=== PATIENT | male | born 1955 | race Caucasian/White ===

== ENCOUNTER 2024-03-13 09:01 | Outpatient (AMB) | payer OTHER, SELFPAY ==
--- NOTE | 2024-03-13 09:03 | MHC.PC.OV ---
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 Required: No Accompanied by: Self / Same As Patient Allergies No Known Allergies Allergy (Verified 03/14/24 08:44) Medication List - Last Reconciled 03/14/24 by Xu Betancourt CNP amiloride-hydrochlorothiazide 5-50 mg 1 tab PO DAILY amlodipine-benazepril 10-40 mg 1 cap PO DAILY aspirin 81 mg PO DAILY carvedilol 12.5 mg PO BID simvastatin 40 mg PO DAILY Tobacco use date assessed: 03/13/24 Fall risk assessment: No Falls in past year Last assessed Fall Risk: 03/13/24 Dental Screening Dental Screen Date: 03/13/24 Did you have a dental visit in the last 12 months?: No Did you have a dental problem in the last 6 months where you did not have access to dental care?: No Was dental information given to patient?: Yes HPI HPI Comments History of Present Illness Details New patient Prior PCP:?Family Medicine, [place], Dr. Gates. [facility] Last office visit/CPE: About 2.5 years Last lab work: 4-5 years ago Acute issue(s): Hypertension -He is on amiloride-hydrochlorothiazide 5-50 mg daily, amlodipine-benazepril 10-40 mg daily, and carvedilol 12.5 mg twice daily HLD -He is on simvastatin 40 mg daily Arthritis both knees -He takes Tylenol and apply bengay cream as needed with some improvement. He notes that bilat total knee replacement was recommended but he declined He admits to bilateral hearing impairment in the past 1 year for which he has never been medically evaluated He denies acute symptoms at this time He was seen by [facility] last week for a lesion to his left lateral neck; biopsy was taken; awaiting results He is followed by [facility]. [facility]. He has a follow up in May PMHx: HTN, HLD, COPD, arthritis in both knees SurgHx: s/p excisional neck biopsy FHx: Mom: Dad: HTN. MGF: Prostate cancer SocHx: Former cigarette smoker. Quit smoking 3 months ago after smoking for 51. He smoked between 1-3 packs daily. Drinks 6 beers weekly for the past 2 years. He notes that he drank half a dozen alcoholic beverages daily for 40 years. He notes that he is an alcoholic. He smokes 2 joints of marijuana daily He notes he has never had a LDCT He has not been vaccinated for shingles or pneumonia He notes that his last colonoscopy was 5 years ago at [facility]: normal [facility] Medical History (Updated 03/14/24 @ 09:02 by Xu Betancourt CNP) Arthritis High blood pressure COPD (chronic obstructive pulmonary disease) Surgical History (Updated 03/13/24 @ 09:26 by TIM Jones) Status post excisional biopsy Family History (Updated 03/13/24 @ 09:27 by TIM Jones) Father High blood pressure Maternal Grandfather Prostate cancer Social History Housing: House Patient Tobacco Use Status: Former Tobacco user Tobacco use type: Cigarette e-Cigarette/Vaping Use: Never Used service: No Current occupational status: retired Cognitive needs: No Hearing needs: No Vision needs: No Questionnaire PHQ-9 Over the last 2 weeks, how often have you been bothered by any of the following problems? 1. Little interest or pleasure in doing things: not at all 2. Feeling down, depressed, or hopeless: not at all 3. Trouble falling or staying asleep, or sleeping too much: not at all 4. Feeling tired or having little energy: not at all 5. Poor appetite or overeating: not at all 6. Feeling bad about yourself - or that you are a failure or have let yourself or your family down: not at all 7. Trouble concentrating on things, such as reading the newspaper or watching television: not at all 8. Moving or speaking so slowly that other people could have noticed. Or the opposite - being so fidgety or restless that you have been moving around a lot more than usual: not at all 9. Thoughts that you would be better off or of hurting yourself in some way: not at all Total score: 0 Depression Screening Interpretation: Negative Depression Screening Done: Yes 36539 - PHQ-9 Billing: Yes Source: Developed by Drs. Saurav Patel, Aminta Angeles, Frank Lopez and colleagues, with an educational salvador from [employer]. Thrive Questionnaire Date Thrive assessed: 03/13/24 I am a: Patient What is your living situation today?: I have a steady place to live Within the past 12 months, did the food you bought not last and you didn't have the money to get more?: Never true Within the past 12 months, did you worry whether your food would run out before you got money to buy more?: Never true Do you have trouble paying for medicines?: No Do you have trouble getting transportation to medical appointments?: No Do you have trouble paying your heating and electricity bill?: No Do you have trouble taking care of your child, family member or friend?: No Do you have trouble with day-to-day activities such as bathing, preparing meals, shopping, managing finances, etc.?: No Are you currently unemployed and looking for a job?: No Are you interested in more education?: No Please select the resources that you would like help with: None Currently or been in a relationship where the following occur: no concerns reported THRIVE Score: 0 AUDIT C Alcohol Use Questionnaire (AUDIT-C) 1. How often do you have a drink containing alcohol?: 4 or more times a week 2. How many drinks containing alcohol do you have on a typical day when you are drinking?: 5 or 6 3. How often do you have six or more drinks on one occasion?: Weekly Total Score: 9 LAZARO-7 AMB Questionnaire LAZARO-7 Date LAZARO - 7 assessed: 03/13/24 Feeling nervous, anxious, or on edge: 0 = Not at all Not being able to stop or control worryin = Not at all Worrying too much about different things: 0 = Not at all Trouble relaxin = Not at all Being so restless that it is hard to sit still: 0 = Not at all Becoming easily annoyed or irritable: 0 = Not at all Feeling afraid as if something awful might happen: 0 = Not at all Total LAZARO-7 score (0-4 normal; 5-9 mild; 10-14 moderate; 15-21 severe): 0 Source: Developed by Aminta Milian, Frank Lopez and colleagues, with an educational salvador from [employer]. LAZARO-7 Assessment Billing LAZARO-7 Assessment Tool: LAZARO-7 Assessment 09887 Review of Systems Const Details: Denies chills, Denies fatigue, Denies fever(s), Denies headache(s) and Denies weakness HEENT Denies change in vision, Denies dizziness, Denies headache(s), Denies hearing loss, Denies nasal congestion, Denies sinus pain, Denies sinus pressure and Denies sore throat Card Denies chest pain, Denies lightheadedness, Denies dyspnea and Denies other (palpitations) Resp Denies cough, Denies dyspnea and Denies wheezing GI Denies abdominal pain, Denies melena, Denies hematochezia, Denies change in bowel habits, Denies dyspepsia and Denies nausea Denies hematuria and Denies dysuria Musc Denies abnormal gait, Denies myalgias, Denies arthralgias, Denies numbness and Denies tingling Skin/Breast Denies rash, Denies unusual bruising and Denies wounds Neuro Denies abnormal gait, Denies dizziness, Denies headache(s), Denies memory loss, Denies numbness, Denies Sensory deficit (Neuro), Denies tingling and Denies weakness Psych Denies anxiety, Denies depression and Denies memory loss Endo Denies cold intolerance, Denies fatigue, Denies heat intolerance, Denies polydipsia and Denies polyuria Julius/Lymph Denies easy bleeding and Denies easy bruising Aller/Immun Denies wheezing Physical exam (Primary Care) Vital Signs: Last Vital Signs Temp 97.6 F 03/13/24 09:08 Pulse 63 03/13/24 09:08 Resp 14 03/13/24 09:08 BP 140/70 H 03/13/24 09:08 Pulse Ox 99 03/13/24 09:08 Oxygen Delivery Method Room Air 03/13/24 09:08 BMI result Body Mass Index 29.2 Tobacco/Smoking Status: Tobacco use Status Tobacco use date assessed 03/13/24 03/13/24 09:17 Patient Tobacco Use Status Former Tobacco user 03/13/24 09:17 Tobacco use type Cigarette 03/13/24 09:17 e-Cigarette/Vaping Use Never Used 03/13/24 09:17 PHQ-9: PHQ-9 Score PHQ-9: Total score 0 03/14/24 08:39 Depression Screening Interpretation: Negative Thrive Assessment: Date of Thrive Assessment Date Thrive assessed 03/13/24 03/13/24 09:06 Currently or been in a relationship where the following occur: no concerns reported Const Other: General: no acute distress, well developed, alert and awake Nutritional Appearance: well nourished Orientation/consciousness: patient oriented x3 HENMT Head: Yes normocephalic and Yes atraumatic Ears: hearing grossly normal bilaterally and TM's normal bilaterally General nose exam: Normal external nose present and Normal nares present Mouth: Normal oral and palatal mucosa present and moist mucous membranes Teeth and gingiva: dentition normal Throat: Yes oropharynx normal Eyes Pupils: Equal, round and reactive pupils present and Pupil accommodation reflex normal EOM: EOMs intact bilaterally Neck Neck: Yes normal visual inspection, Yes no lymphadenopathy and Yes trachea midline Thyroid: Thyroid normal Carotids: no bruits Lymphatic: no lymphadenopathy noted Chest Chest palpation & inspection: normal inspection of the chest Resp Effort & Inspection: normal respiratory effort Auscultation: clear to auscultation bilaterally Cardio Rate: regular rate Rhythm: regular rhythm Heart sounds: S1 normal heart sound present, S2 normal heart sound present, no gallops, no murmurs and no rubs Bruits: no abdominal aortic bruits and no carotid bruits GI Palpation (GI): No Abdominal aortic bruit present, Soft to palpation, nontender, No hepatosplenomegaly present and No Rebound tenderness present Auscultation: normal bowel sounds General: Yes no CVA tenderness Back/Spine/Pelvis Back: no CVA tenderness Cervical Spine: cervical ROM normal and No Cervical spine tenderness Thoracic/Lumbar Spine: thoraco-lumbar ROM normal, No pain with thoraco-lumbar ROM, No thoracic spinal tenderness and No lumbar spinal tenderness Skin General: warm and dry. Normal skin color. Normal skin turgor Lesions: Healing wound to left lateral neck/excisional biopsy site. No overt infection Rashes: no rashes Trauma: no lacerations or abrasions Wounds: no wounds Nails: normal Neuro General: patient oriented x3, gait normal and CN's II-XI intact bilaterally Cranial nerves: Yes Equal, round and reactive pupils present Cognition (Neuro): normal cognition Gait exam (Neuro): Normal gait present Motor exam (neuro): 5/5 motor strength present throughout Sensory Exam: No Sensory deficit (Neuro) Deep tendon reflexes (DTR's): Right patellar reflex intensity grade: 2+ and Left patellar reflex intensity grade: 2+ Extrem General: Yes normal to inspection, No edema and No calf tenderness Psych Appearance: grossly normal Affect: normal affect Attitude: cooperative Thought process: Normal thought process present Assessment and Plan Assessment & Plan (1) Physical exam, annual: Code(s): Z00.00 - Encounter for general adult medical examination without abnormal findings Plan: Limited physical restrictions due to arthritis to bilateral knee; unable to squat fully Continue current treatment regimen Healthy diet and routine exercise encouraged Encouraged to establish with a dentist for routine dental care Will request his colonoscopy record from [facility] for review Advised to follow-up in 1 month for hypertension, hyperlipidemia, and labs review Return sooner with symptoms or concerns Verbalized understanding and agreed with treatment plan (2) High blood pressure: Code(s): I10 - Essential (primary) hypertension Plan: His blood pressure is 140/70, above goal of less than 140/90 Continue current treatment regimen Low-sodium diet and routine exercise encouraged Continue follow-up with cardiology as planned. Encouraged to sign a medical release to obtain his cardiology record Follow-up in 1 month Verbalized understanding and agreed with treatment plan (3) Hyperlipidemia: Code(s): E78.5 - Hyperlipidemia, unspecified Plan: Lipid panel ordered. Will check results and make changes as needed Continue current treatment regimen Follow-up in 1 month Verbalized understanding and agreed with the plan (4) COPD (chronic obstructive pulmonary disease): Code(s): J44.9 - Chronic obstructive pulmonary disease, unspecified Plan: Stable (5) Smoking greater than 20 pack years: Code(s): F17.210 - Nicotine dependence, cigarettes, uncomplicated Plan: He quit smoking 3 months ago after smoking for 51. He smoked between 1-3 packs daily He has never had a LDCT LDCT ordered Encouraged to continue to abstain from cigarette smoking Verbalized understanding and agreed with the plan (6) Impaired hearing: Code(s): H91.90 - Unspecified hearing loss, unspecified ear Plan: He admits to bilateral hearing impairment in the past 1 year He has never been evaluated for this condition Referred to audiology (7) Alcohol dependence: Code(s): F10.20 - Alcohol dependence, uncomplicated Plan: He drinks 6 beers weekly for the past 2 years. He notes that he drank half a dozen alcoholic beverages daily for 40 years. He notes that he is an alcoholic but has made significant improvement over the years Declines referral to addiction medicine Instructed on the health risks and complications of alcohol consumption and encouraged to limit or stop alcohol intake (8) Vaccine counseling: Code(s): Z71.85 - Encounter for immunization safety counseling Plan: He has not been vaccinated for shingles or pneumonia. Instructed on importance of vaccinations and encouraged to get vaccinated for both shingles or pneumonia. He may request the vaccines from his local pharmacy. Verbalized understanding and agreed with the plan (9) Open neck wound: Code(s): S11.90XA - Unspecified open wound of unspecified part of neck, initial encounter Plan: Healing wound to left lateral neck/excisional biopsy site. No overt infection Follow-up with Dermatology as planned Return with symptoms or concerns Verbalized understanding and agreed with the treatment plan (10) Arthritis of both knees: Code(s): M17.0 - Bilateral primary osteoarthritis of knee Plan: No acute symptoms Continue current treatment regimen Warm/cool compresses encouraged Follow-up with symptoms or concerns Verbalized understanding and agreed with the treatment plan (11) Laboratory tests ordered as part of a complete physical exam (CPE): Code(s): Z00.00 - Encounter for general adult medical examination without abnormal findings Plan: Fasting labs ordered as part of a complete physical exam. Advised to fast for at least 10 hours before getting labs drawn. May drink water Verbalized understanding and agreed with treatment plan. Orders: Orders Comprehensive [place]. Panel Fast 03/13/24 Z. - Encounter for general adult medical examination without abnormal findings Lipid Panel 03/13/24 Z.00 - Encounter for general adult medical examination without abnormal findings TSH reflex Free T4 03/13/24 Z. - Encounter for general adult medical examination without abnormal findings UA CC w/rflx Micro + Cult 03/13/24 Z. - Encounter for general adult medical examination without abnormal findings Complete Blood Count Auto Diff 03/13/24 Z. - Encounter for general adult medical examination without abnormal findings Microalbumin, Random (w Creat) 03/13/24 Z. - Encounter for general adult medical examination without abnormal findings PSA, Ultra Sensitive 03/13/24 Z00.00 - Encounter for general adult medical examination without abnormal findings CT lung screening 03/13/24 F17.210 - Nicotine dependence, cigarettes, uncomplicated Referrals Audiology Referral H91.90 - Unspecified hearing loss, unspecified ear Coding Level of Care Code New Pt Level 4 (27561) New Pt Prev Care >65yr (13920) Diagnoses Physical exam, annual Z00.00 High blood pressure I10 Hyperlipidemia E78.5 COPD (chronic obstructive pulmonary disease) J44.9 Smoking greater than 20 pack years F17.210 Impaired hearing H91.90 Alcohol dependence F10.20 Vaccine counseling Z71.85 Open neck wound S11.90XA Arthritis of both knees M17.0 Laboratory tests ordered as part of a complete physical exam (CPE) Z00.00 Additional Codes LAZARO-7 Assessment Billing - LAZARO-7 Assessment Tool: LAZARO-7 Assessment 70506 ([id number])
[2024-03-13 09:08] VITALS: BP 140/70; PULSE 63; RESP 14; TEMP 36.4; O2SAT 99; BMI 29.2
== END 2024-03-13 10:07 | disposition home or self-care (01) ==
PROVIDERS: Visit Provider Nurse Practitioner Family
DX: Z00.00 Encounter for general adult medical examination without abnormal findings (principal); J44.9 Chronic obstructive pulmonary disease, unspecified; F10.20 Alcohol dependence, uncomplicated; I10 Essential (primary) hypertension; E78.5 Hyperlipidemia, unspecified; F17.210 Nicotine dependence, cigarettes, uncomplicated; Z71.85 Encounter for immunization safety counseling; S11.90XA Unspecified open wound of unspecified part of neck, initial encounter; M17.0 Bilateral primary osteoarthritis of knee
CPT/HCPCS: 99387

== ENCOUNTER 2024-04-10 07:33 | Outpatient (REF) | payer OTHER, SELFPAY ==
[2024-04-10 10:55] LABS: MANUAL DIFF FLAG NO
[2024-04-10 10:58] LABS: Appearance Urine Clear; Color Urine Dark Yellow; Glucose Urine UA Negative (Negative); Leukocyte Esterase Urine Negative (Negative); Nitrite Urine Negative (Negative); PH 6.5 (5.0-9.0); Specific Gravity - Urine >= 1.030 (1.005-1.025); Urine Blood Negative (Negative); Urine Ketones Trace mg/dL (Negative); Urine Protein Trace mg/dL (Neg-Trace)
[2024-04-10 11:05] LABS: Basophils Absolute Auto 0.1 X10*3/uL (0.0-0.2); Basophils Percent Auto 1.2 % (0-2); Eosinophils Absolute Auto 0.3 X10*3/uL (0.0-0.4); Hematocrit 44.5 % (42.0-52.0); Hemoglobin 15.6 g/dl (14.0-18.0); Imm Gran Abs Auto 0.04 X10*3/uL (0.00-0.03); Imm Gran Pct Auto 0.5 % (0.0-0.4); Lymphocytes Absolute Auto 2.1 X10*3/uL (1.2-4.9); Lymphocytes Percent Auto 24.8 % (20-40); Mean Corpuscular HGB Conc 35.1 g/dl (31.0-36.0); Mean Corpuscular Hemoglobin 34.5 pg (27.0-33.0); Mean Corpuscular Volume 98.5 fL (80.0-98.0); Mean Platelet Volume 10.4 fL (9.4-12.4); Monocytes Absolute Auto 0.7 X10*3/uL (0.1-1.2); Monocytes Percent Auto 8.8 % (2-11); Neutrophils Absolute Auto 5.2 x10*3/uL (2.0-8.3); Neutrophils Percent Auto 61.7 % (45-73); Platelet Count 281 X10*3/uL (160-400); Red Blood Count 4.52 X10*6/uL (4.60-5.80); Red Cell Distribution Width 12.7 % (11.0-16.0); White Blood Count 8.4 X10*3/uL (4.8-10.8)
[2024-04-10 11:11] LABS: Anion Gap 12 (12-20); Blood Urea Nitrogen 13 mg/dL (9-16); Calcium 9.5 mg/dL (8.4-10.2); Carbon Dioxide 26 mmol/L (22-29); Chloride 103 mmol/L (96-108); Cholesterol 117 mg/dL (<200); Estimated Glomerular Filt Rate > 60; Glucose Random 109 mg/dL (60-115); HDL Cholesterol 40 mg/dL (>40); LDL Cholesterol Calculated 61 mg/dL (<100); Potassium 3.4 mmol/L (3.3-5.1); Sodium 138 mmol/L (135-145); Triglycerides 82 mg/dL (<150)
[2024-04-10 11:27] LABS: B Type Natriuretic Peptide 26 pg/mL (<100)
[2024-04-10 11:36] LABS: Creatinine Urine 200.86 mg/dL; Microalbum/Creatinine Ratio Ur 7.9 ug/mg cr (<30)
[2024-04-10 12:01] LABS: Alanine Aminotransferase 18 U/L (0-40); Albumin Level 4.3 g/dL (3.5-5.0); Alkaline Phosphatase 69 U/L (39-117); Anion Gap 12 (12-20); Aspartate Amino Transferase 16 U/L (5-37); Bilirubin Total 0.5 mg/dL (0.0-1.0); Blood Urea Nitrogen 13 mg/dL (9-16); Calcium 9.3 mg/dL (8.4-10.2); Carbon Dioxide 25 mmol/L (22-29); Chloride 104 mmol/L (96-108); Cholesterol 116 mg/dL (<200); Estimated Glomerular Filt Rate > 60; Glucose Fasting 108 mg/dL (60-99); HDL Cholesterol 41 mg/dL (>40); LDL Cholesterol Calculated 59 mg/dL (<100); Potassium 3.3 mmol/L (3.3-5.1); Sodium 138 mmol/L (135-145); Total Protein 7.3 g/dL (6.5-8.0); Triglycerides 84 mg/dL (<150)
[2024-04-13 20:49] LABS: PSA, Ultra Sensitive 1.22 ng/mL
== END 2024-04-10 07:34 | disposition home or self-care (01) ==
LOC: HO.WFDLDS 07:33
PROVIDERS: Internal Medicine Cardiovascular Disease; Visit Provider Nurse Practitioner Family
DX: Z00.00 Encounter for general adult medical examination without abnormal findings (principal); R06.02 Shortness of breath; E78.00 Pure hypercholesterolemia, unspecified; I51.7 Cardiomegaly; Z12.5 Encounter for screening for malignant neoplasm of prostate
CPT/HCPCS: 36415; 80048; 80053; 80061; 81003; 82043; 82570; 83880; 84153; 84443; 85025

== ENCOUNTER 2024-04-17 09:28 | Outpatient (AMB) | payer OTHER, SELFPAY ==
--- NOTE | 2024-04-17 09:38 | MHC.PC.OV ---
Vital Signs 04/17/24 09:45 Weight 226 lb 2 oz BP 110/60 Blood Pressure Location Rt brachial Position Sitting Respiration 16 Pulse 68 Pulse Source Pulse Oximeter Temp 97.5 F Temp Source Temporal Artery Scan Pulse Oximetry (%) 97 Oxygen Delivery Method Room Air Intake Visit Reasons: 1 mos HTN, HLD, labs Intake Note: patient here for follow up. Voucher Examiner Required: No Allergies No Known Allergies Allergy (Verified 04/17/24 09:58) Medication List - Last Reconciled 04/17/24 by Xu Betancourt CNP amiloride-hydrochlorothiazide 5-50 mg 1 tab PO DAILY amlodipine-benazepril 10-40 mg 1 cap PO DAILY aspirin 81 mg PO DAILY carvedilol 12.5 mg PO BID simvastatin 40 mg PO DAILY Tobacco use date assessed: 03/13/24 Fall risk assessment: No Falls in past year Dental Screening Dental Screen Date: 03/13/24 HPI HPI Comments History of Present Illness Details 68-year-old male presents for hypertension, hyperlipidemia, and review recent lab work He admits to taking his medications as prescribed without adverse reactions He offers no complaints and denies acute symptoms at this time [facility] Medical History (Updated 04/17/24 @ 13:11 by Xu Betancourt CNP) Arthritis High blood pressure COPD (chronic obstructive pulmonary disease) Surgical History (Updated 03/13/24 @ 09:26 by TIM Jones) Status post excisional biopsy Family History (Updated 03/13/24 @ 09:27 by TIM Jones) Father High blood pressure Maternal Grandfather Prostate cancer Social History Housing: House Patient Tobacco Use Status: Former Tobacco user Tobacco use type: Cigarette e-Cigarette/Vaping Use: Never Used service: No Current occupational status: retired Cognitive needs: No Hearing needs: No Vision needs: No Questionnaire PHQ-9 Over the last 2 weeks, how often have you been bothered by any of the following problems? 1. Little interest or pleasure in doing things: not at all 2. Feeling down, depressed, or hopeless: not at all 3. Trouble falling or staying asleep, or sleeping too much: several days 4. Feeling tired or having little energy: several days 5. Poor appetite or overeating: not at all 6. Feeling bad about yourself - or that you are a failure or have let yourself or your family down: not at all 7. Trouble concentrating on things, such as reading the newspaper or watching television: not at all 8. Moving or speaking so slowly that other people could have noticed. Or the opposite - being so fidgety or restless that you have been moving around a lot more than usual: not at all 9. Thoughts that you would be better off or of hurting yourself in some way: not at all Total score: 2 Depression Screening Interpretation: Negative Depression Screening Done: Yes 82046 - PHQ-9 Billing: Yes Source: Developed by Drs. Saurav Patel, Aminta Angeles, Frank Lopez and colleagues, with an educational salvador from [employer]. Thrive Questionnaire Date Thrive assessed: 03/13/24 LAZARO-7 AMB Questionnaire LAZARO-7 Date LAZARO - 7 assessed: 03/13/24 Source: Developed by Drs. Saurav Patel, Aminta Angeles, Frank Lopez and colleagues, with an educational salvador from [employer]. Review of Systems Const Details: Const Denies chills, Denies fatigue, Denies fever(s), Denies headache(s) and Denies weakness ENT Denies dizziness and Denies headache(s) Card Denies chest pain, Denies lightheadedness, Denies dyspnea and Denies other (Palpitations) Resp Denies cough, Denies dyspnea, Denies wheezing and Denies other ( shortness of breath) GI Denies abdominal pain, Denies melena, Denies hematochezia, Denies change in bowel habits, Denies dyspepsia and Denies nausea Denies hematuria and Denies dysuria Musc Denies abnormal gait, Denies myalgias, Denies arthralgias, Denies numbness and Denies tingling Skin/Breast Denies rash, Denies unusual bruising and Denies wounds Neuro Denies abnormal gait, Denies dizziness, Denies headache(s), Denies memory loss, Denies numbness, Denies Sensory deficit (Neuro), Denies tingling and Denies weakness Psych Denies anxiety, Denies depression, Denies memory loss Endo Denies cold intolerance, Denies fatigue, Denies heat intolerance, Denies polydipsia and Denies polyuria Aller/Immun Denies wheezing Physical exam (Primary Care) Vital Signs: Last Vital Signs Temp 97.5 F 04/17/24 09:45 Pulse 68 04/17/24 09:45 Resp 16 04/17/24 09:45 BP 110/60 04/17/24 09:45 Pulse Ox 97 04/17/24 09:45 Oxygen Delivery Method Room Air 04/17/24 09:45 Tobacco/Smoking Status: Tobacco use Status Tobacco use date assessed 03/13/24 04/17/24 09:38 Patient Tobacco Use Status Former Tobacco user 04/17/24 09:38 Tobacco use type Cigarette 04/17/24 09:38 e-Cigarette/Vaping Use Never Used 04/17/24 09:38 PHQ-9: PHQ-9 Score PHQ-9: Total score 2 04/17/24 13:13 Depression Screening Interpretation: Negative Thrive Assessment: Date of Thrive Assessment Date Thrive assessed 03/13/24 04/17/24 09:38 Const Other: General: no acute distress and well developed Nutritional Appearance: well nourished Orientation/consciousness: patient oriented x3 HENMT Head: Yes normocephalic and Yes atraumatic Eyes General: appearance normal, both eyes and all related structures Pupils: Equal, round and reactive pupils present EOM: EOMs intact bilaterally Resp Effort & Inspection: normal respiratory effort Auscultation: clear to auscultation bilaterally Cardio Rate: regular rate Rhythm: regular rhythm Heart sounds: S1 normal heart sound present, S2 normal heart sound present, no gallops, no murmurs and no rubs GI Palpation (GI): No Abdominal aortic bruit present, Soft to palpation, nontender, No hepatosplenomegaly present and No Rebound tenderness present Auscultation: normal bowel sounds General: Yes no CVA tenderness Back/Spine/Pelvis Back: no CVA tenderness Cervical Spine: cervical ROM normal and No Cervical spine tenderness Thoracic/Lumbar Spine: thoraco-lumbar ROM normal, No pain with thoraco-lumbar ROM, No thoracic spinal tenderness and No lumbar spinal tenderness Extrem General: Yes normal to inspection, No edema and No calf tenderness Skin General: warm and dry. Normal skin color. Normal skin turgor Neuro General: patient oriented x3, gait normal and no focal neuro deficit Cranial nerves: Yes Equal, round and reactive pupils present Cognition (Neuro): normal cognition Gait exam (Neuro): Normal gait present Sensory Exam: No Sensory deficit (Neuro) Psych Appearance: grossly normal Affect: normal affect Attitude: cooperative Thought process: Normal thought process present Results AMB Hemoglobin A1c AMB Hemoglobin A1c 5.9 % Last Edit by Alexandra Rodriguez on 04/17/24 14:30 Assessment and Plan Assessment & Plan (1) High blood pressure: Code(s): I10 - Essential (primary) hypertension Plan: Blood pressure today is 110/60, within goal of less than 140/90 Continue current treatment regimen Low-sodium diet encouraged Follow-up in 3 months for hypertension and hyperlipidemia or sooner with symptoms or concerns Verbalized understanding and agreed with the treatment plan (2) Hyperlipidemia: Code(s): E78.5 - Hyperlipidemia, unspecified Plan: Current triglyceride, total cholesterol, and LDL, levels are normal, 82, 117, and 61 respectively. HDL is slightly low, 40 Continue current treatment regimen Advised to limit foods high in saturated fat and avoid foods high in trans fat Routine exercise encouraged Will recheck lipid panel level in 3 months. Advised to fast for 10-12 hours, may drink water only, and get blood work done a few days before his next visit Verbalized understanding and agreed with the plan (3) Prediabetes: Code(s): R73.03 - Prediabetes Plan: Recent fasting glucose is elevated, 108 He notes history of borderline elevated fasting blood glucose His A1c today is 5.9%, prediabetes Healthy diet including low carbs instructed and encouraged Routine exercise encouraged Will continue to monitor periodically Verbalized understanding and agreed with treatment plan (4) Colon cancer screening: Code(s): Z12.11 - Encounter for screening for malignant neoplasm of colon Plan: Was not able to locate his last colonoscopy in [facility] medical records He notes that his last colonoscopy was almost 10 years ago. Benign polyps were found and was advised to follow-up in 5 years. He never followed up Referred to [facility] gastroenterology for a colonoscopy Orders: Orders Lipid Panel 3 Months E78.5 - Hyperlipidemia, unspecified AMB Hemoglobin A1c Today Z13.9 - Encounter for screening, unspecified Referrals Gastroenterology Referral Z12.11 - Encounter for screening for malignant neoplasm of colon Coding Level of Care Code Est Pt Level 4 (77536) Complex EM visit Add On G2211 Diagnoses High blood pressure I10 Hyperlipidemia E78.5 Prediabetes R73.03 Colon cancer screening Z12.11
[2024-04-17 09:45] VITALS: BP 110/60; PULSE 68; RESP 16; TEMP 36.4; O2SAT 97
== END 2024-04-17 10:43 | disposition home or self-care (01) ==
PROVIDERS: Visit Provider Nurse Practitioner Family
DX: I10 Essential (primary) hypertension (principal); E78.5 Hyperlipidemia, unspecified; R73.03 Prediabetes; Z12.11 Encounter for screening for malignant neoplasm of colon
CPT/HCPCS: 83036; 99214; G2211

== ENCOUNTER 2024-11-13 08:07 | Outpatient (AMB) | payer OTHER, SELFPAY ==
--- NOTE | 2024-11-13 08:09 | MHC.PC.OV ---
Vital Signs 11/13/24 08:19 11/13/24 08:35 Height 6 ft 2 in Weight 246 lb 2 oz BMI 31.6 BP 143/65 H 140/70 H Blood Pressure Location Rt brachial Lt brachial Position Sitting Sitting Respiration 16 Pulse 67 Pulse Source Pulse Oximeter Temp 97.5 F Temp Source Oral Pulse Oximetry (%) 97 Oxygen Delivery Method Room Air Intake Visit Reasons: FOLLOW UP BLOOD WORK CT SCAN Intake Note: patient here for follow up on blood work and CT scan. he was supposed have a few things done but due to insurance he could not get them done and that's why he is here today to speak to provider. Observation Nurse Required: No Allergies No Known Allergies Allergy (Verified 11/13/24 08:23) Medication List - Last Reconciled 11/13/24 by Xu Betancourt CNP amiloride-hydrochlorothiazide 5-50 mg 1 tab PO DAILY amlodipine-benazepril 10-40 mg 1 cap PO DAILY aspirin 81 mg PO DAILY carvedilol 12.5 mg PO BID simvastatin 40 mg PO DAILY Tobacco use date assessed: 11/13/24 Fall risk assessment: 1 Fall in past year Last assessed Fall Risk: 11/13/24 Dental Screening Dental Screen Date: 11/13/24 Did you have a dental visit in the last 12 months?: Yes Did you have a dental problem in the last 6 months where you did not have access to dental care?: No Was dental information given to patient?: Patient has dentist HPI HPI Comments History of Present Illness Details 69-year-old male presents for hypertension and hyperlipidemia follow-up. He admits to taking his medications as prescribed without adverse reactions. He consumes significant amounts salt and has not been exercising. He drinks 3 beers 2 to 3 times a week. He notes that he gets jumpy and anxious at times. He was on escitalopram 10 mg daily until 2 years ago. The medication was helpful. He wishes to restart citalopram. He did not get lipid panel blood work done for this visit as planned. Followed by cardiology. His previous health plan declined LDCT. However, he has a new health plan and wishes to continue with LDCT. History of cigarette smoking. Quit smoking 11 months ago after smoking for 51. He smoked between 1-3 packs daily. [facility] Medical History (Updated 11/13/24 @ 08:45 by Xu Betancourt CNP) Arthritis High blood pressure COPD (chronic obstructive pulmonary disease) Surgical History (Updated 03/13/24 @ 09:26 by TIM Jones) Status post excisional biopsy Family History (Updated 03/13/24 @ 09:27 by TIM Jones) Father High blood pressure Maternal Grandfather Prostate cancer Social History Housing: House Patient Tobacco Use Status: Former Tobacco user Tobacco use type: Cigarette e-Cigarette/Vaping Use: Never Used service: No Current occupational status: retired Cognitive needs: No Hearing needs: No Vision needs: No Questionnaire PHQ-9 Over the last 2 weeks, how often have you been bothered by any of the following problems? 1. Little interest or pleasure in doing things: not at all 2. Feeling down, depressed, or hopeless: not at all 3. Trouble falling or staying asleep, or sleeping too much: several days 4. Feeling tired or having little energy: several days 5. Poor appetite or overeating: not at all 6. Feeling bad about yourself - or that you are a failure or have let yourself or your family down: not at all 7. Trouble concentrating on things, such as reading the newspaper or watching television: not at all 8. Moving or speaking so slowly that other people could have noticed. Or the opposite - being so fidgety or restless that you have been moving around a lot more than usual: not at all 9. Thoughts that you would be better off or of hurting yourself in some way: not at all Total score: 2 Depression Screening Interpretation: Negative Depression Screening Done: Yes 16219 - PHQ-9 Billing: Yes Source: Developed by Drs. Saurav Patel, Aminta Angeles, Frank Lopez and colleagues, with an educational salvador from [employer]. Thrive Questionnaire Date Thrive assessed: 11/13/24 I am a: Patient What is your living situation today?: I have a steady place to live Within the past 12 months, did the food you bought not last and you didn't have the money to get more?: I choose not to answer this question Within the past 12 months, did you worry whether your food would run out before you got money to buy more?: I choose not to answer this question Do you have trouble paying for medicines?: I choose not to answer this question Do you have trouble getting transportation to medical appointments?: No Do you have trouble paying your heating and electricity bill?: No Do you have trouble taking care of your child, family member or friend?: No Do you have trouble with day-to-day activities such as bathing, preparing meals, shopping, managing finances, etc.?: No Are you currently unemployed and looking for a job?: No Are you interested in more education?: No Please select the resources that you would like help with: None Currently or been in a relationship where the following occur: No concerns reported THRIVE Score: 0 AUDIT C Alcohol Use Questionnaire (AUDIT-C) 1. How often do you have a drink containing alcohol?: 2-3 times a week 2. How many drinks containing alcohol do you have on a typical day when you are drinking?: 3 or 4 3. How often do you have six or more drinks on one occasion?: Never Total Score: 4 Score Reviewed/Action Taken: Yes LAZARO-7 AMB Questionnaire LAZARO-7 Date LAZARO - 7 assessed: 11/13/24 Feeling nervous, anxious, or on edge: 0 = Not at all Not being able to stop or control worryin = Not at all Worrying too much about different things: 0 = Not at all Trouble relaxin = Not at all Being so restless that it is hard to sit still: 0 = Not at all Becoming easily annoyed or irritable: 0 = Not at all Feeling afraid as if something awful might happen: 0 = Not at all Total LAZARO-7 score (0-4 normal; 5-9 mild; 10-14 moderate; 15-21 severe): 0 Source: Developed by Drs. Saurav Patel, Aminta Angeles, Frank Lopez and colleagues, with an educational salvador from [employer]. LAZARO-7 Assessment Billing LAZARO-7 Assessment Tool: LAZARO-7 Assessment 51595 Review of Systems Const Details: Const Denies chills, Denies fatigue, Denies fever(s), Denies headache(s) and Denies weakness ENT Denies dizziness and Denies headache(s) Card Denies chest pain, Denies lightheadedness, Denies dyspnea and Denies other (Palpitations) Resp Denies cough, Denies dyspnea, Denies wheezing and Denies other ( shortness of breath) GI Denies abdominal pain, Denies melena, Denies hematochezia, Denies change in bowel habits, Denies dyspepsia and Denies nausea Denies hematuria and Denies dysuria Musc Denies abnormal gait, Denies myalgias, Denies arthralgias, Denies numbness and Denies tingling Skin/Breast Denies rash, Denies unusual bruising and Denies wounds Neuro Denies abnormal gait, Denies dizziness, Denies headache(s), Denies memory loss, Denies numbness, Denies Sensory deficit (Neuro), Denies tingling and Denies weakness Psych Denies anxiety, Denies depression, Denies memory loss Endo Denies cold intolerance, Denies fatigue, Denies heat intolerance, Denies polydipsia and Denies polyuria Aller/Immun Denies wheezing Physical exam (Primary Care) Tobacco/Smoking Status: Tobacco use Status Tobacco use date assessed 11/13/24 11/13/24 08:16 Patient Tobacco Use Status Former Tobacco user 11/13/24 08:11 Tobacco use type Cigarette 11/13/24 08:11 e-Cigarette/Vaping Use Never Used 11/13/24 08:11 PHQ-9: PHQ-9 Score PHQ-9: Total score 2 11/13/24 08:16 Depression Screening Interpretation: Negative Thrive Assessment: Date of Thrive Assessment Date Thrive assessed 11/13/24 11/13/24 08:11 Currently or been in a relationship where the following occur: No concerns reported Const Other: General: no acute distress and well developed Nutritional Appearance: well nourished Orientation/consciousness: patient oriented x3 HENMT Head: Yes normocephalic and Yes atraumatic Eyes General: appearance normal, both eyes and all related structures Pupils: Equal, round and reactive pupils present EOM: EOMs intact bilaterally Resp Effort & Inspection: normal respiratory effort Auscultation: clear to auscultation bilaterally Cardio Rate: regular rate Rhythm: regular rhythm Heart sounds: S1 normal heart sound present, S2 normal heart sound present, no gallops, no murmurs and no rubs GI Palpation (GI): No Abdominal aortic bruit present, Soft to palpation, nontender, No hepatosplenomegaly present and No Rebound tenderness present Auscultation: normal bowel sounds General: Yes no CVA tenderness Back/Spine/Pelvis Back: no CVA tenderness Cervical Spine: cervical ROM normal and No Cervical spine tenderness Thoracic/Lumbar Spine: thoraco-lumbar ROM normal, No pain with thoraco-lumbar ROM, No thoracic spinal tenderness and No lumbar spinal tenderness Extrem General: Yes normal to inspection, No edema and No calf tenderness Skin General: warm and dry. Normal skin color. Normal skin turgor Neuro General: patient oriented x3, gait normal and no focal neuro deficit Cranial nerves: Yes Equal, round and reactive pupils present Cognition (Neuro): normal cognition Gait exam (Neuro): Normal gait present Sensory Exam: No Sensory deficit (Neuro) Psych Appearance: grossly normal Affect: normal affect Attitude: cooperative Thought process: Normal thought process present Coding Level of Care Code Est Pt Level 4 (66941) Diagnoses High blood pressure I10 Hyperlipidemia E78.5 Anxiety F41.9 Screening for lung cancer Z12.2 Additional Codes LAZARO-7 Assessment Billing - LAZARO-7 Assessment Tool: LAZARO-7 Assessment 93973 ([id number]) PHQ-9 - 79796 - PHQ-9 Billing: Yes ([id number]) Assessment & Plan Assessment & Plan (1) High blood pressure: Code(s): I10 - Essential (primary) hypertension Category: Medical Plan: Resting blood pressure is 140/70, slightly above goal of less than 140/90. Continue current treatment regimen. Low-sodium diet and routine exercise encouraged. Advised to cut down on drinking to no more than 2 drinks in 1 sitting and 7 drinks a week. Follow-up with boat person as planned. Return in 1 month or sooner with symptoms or concerns. Verbalized understanding and agreed with the plan. (2) Hyperlipidemia: Code(s): E78.5 - Hyperlipidemia, unspecified Category: Medical Plan: He did not get lipid panel blood work done for this visit as planned. Continue current treatment regimen. Advised to limit foods high in saturated fat and avoid foods high in trans fat. Routine exercise encouraged. Rest fast for 10-12 hours, may drink water, and get fasting blood work done before his next visit Verbalized understanding and agreed with the plan. (3) Anxiety: Code(s): F41.9 - Anxiety disorder, unspecified Category: Medical Plan: He gets jumpy and anxious at times. He was on escitalopram 1-2 years ago which he found helpful. No anxiety at this time. PHQ-9 and LAZARO-7 scores are normal. Escitalopram 10 mg daily ordered. Advised to take as prescribed. Instructed on the risks, benefits, potential adverse reactions of the medication. Follow-up in 1 month or sooner with worsening or new symptoms. Verbalized understanding and agreed with treatment plan. (4) Screening for lung cancer: Code(s): Z12.2 - Encounter for screening for malignant neoplasm of respiratory organs Category: Medical Plan: His previous health plan declined LDCT. However, he has a new health plan and wishes to continue with LDCT. History of cigarette smoking. Quit smoking 11 months ago after smoking for 51. He smoked between 1-3 packs daily. Referred to pulmonology for LDCT. Orders: Referrals Pulmonology Referral Z12.2 - Encounter for screening for malignant neoplasm of respiratory organs Medications: New escitalopram oxalate 10 mg PO DAILY 30 days 30 tabs 3RF
[2024-11-13 08:19] VITALS: BP 143/65; PULSE 67; RESP 16; TEMP 36.4; O2SAT 97; BMI 31.6
[2024-11-13 08:35] VITALS: BP 140/70
== END 2024-11-13 08:43 | disposition home or self-care (01) ==
PROVIDERS: PCP Nurse Practitioner Family; Visit Provider Nurse Practitioner Family
DX: I10 Essential (primary) hypertension (principal); E78.5 Hyperlipidemia, unspecified; F41.9 Anxiety disorder, unspecified; Z12.2 Encounter for screening for malignant neoplasm of respiratory organs

== ENCOUNTER → 2024-11-13 08:07 | Outpatient (BNVA) | payer SELFPAY | PROVIDERS: PCP Nurse Practitioner Family; Visit Provider Nurse Practitioner Family | DX: I10 Essential (primary) hypertension (principal); E78.5 Hyperlipidemia, unspecified; F41.9 Anxiety disorder, unspecified | CPT/HCPCS: 96127; 99212 ==

== ENCOUNTER 2024-12-04 08:24 | Outpatient (REF) | payer BC, SELFPAY ==
[2024-12-04 11:38] LABS: MANUAL DIFF FLAG NO
[2024-12-04 11:49] LABS: Hemoglobin 15.8 g/dl (14.0-18.0); Mean Corpuscular HGB Conc 35.9 g/dl (31.0-36.0); Mean Corpuscular Hemoglobin 34.9 pg (27.0-33.0); Mean Corpuscular Volume 97.1 fL (80.0-98.0); Platelet Count 309 X10*3/uL (160-400); Red Blood Count 4.53 X10*6/uL (4.60-5.80); Red Cell Distribution Width 12.4 % (11.0-16.0); White Blood Count 7.5 X10*3/uL (4.8-10.8)
[2024-12-04 11:50] LABS: Basophils Absolute Auto 0.1 X10*3/uL (0.0-0.2); Basophils Percent Auto 0.9 % (0-2); Eosinophils Absolute Auto 0.2 X10*3/uL (0.0-0.4); Eosinophils Percent Auto 2.1 % (0-4); Imm Gran Abs Auto 0.02 X10*3/uL (0.00-0.03); Imm Gran Pct Auto 0.3 % (0.0-0.4); Lymphocytes Absolute Auto 2.2 X10*3/uL (1.2-4.9); Lymphocytes Percent Auto 29.1 % (20-40); Mean Platelet Volume 10.1 fL (9.4-12.4); Monocytes Absolute Auto 0.9 X10*3/uL (0.1-1.2); Monocytes Percent Auto 12.1 % (2-11); Neutrophils Absolute Auto 4.1 x10*3/uL (2.0-8.3); Neutrophils Percent Auto 55.5 % (45-73)
[2024-12-04 12:00] LABS: Cholesterol 115 mg/dL (<200); HDL Cholesterol 44 mg/dL (>40); LDL Cholesterol Calculated 54 mg/dL (<100); Triglycerides 88 mg/dL (<150)
== END 2024-12-04 08:25 | disposition home or self-care (01) ==
LOC: HO.WFDLDS 08:24
PROVIDERS: Visit Provider Nurse Practitioner Family
DX: Z00.00 Encounter for general adult medical examination without abnormal findings (principal); E78.5 Hyperlipidemia, unspecified
CPT/HCPCS: 36415; 80061; 85025

== ENCOUNTER 2024-12-14 08:09 | Outpatient (AMB) | payer BC, SELFPAY ==
--- NOTE | 2024-12-14 08:10 | MHC.PC.OV ---
Vital Signs 12/14/24 08:16 12/14/24 08:34 Height 6 ft 2 in Weight 238 lb BMI 30.6 BP 138/58 L 128/60 Blood Pressure Location Rt brachial Lt brachial Position Sitting Sitting Respiration 16 Pulse 56 Pulse Source Pulse Oximeter Temp 98.3 F Temp Source Oral Pulse Oximetry (%) 97 Oxygen Delivery Method Room Air Intake Visit Reasons: 1 mos HTN, anxiety Intake Note: patient here for 1 month HTN and anxiety Back Shoe Cutter Required: No Allergies No Known Allergies Allergy (Verified 12/14/24 08:27) Medication List - Last Reconciled 12/14/24 by Xu Betancourt CNP amiloride-hydrochlorothiazide 5-50 mg 1 tab PO DAILY amlodipine-benazepril 10-40 mg 1 cap PO DAILY aspirin 81 mg PO DAILY carvedilol 12.5 mg PO BID escitalopram oxalate 10 mg PO DAILY 30 days simvastatin 40 mg PO DAILY Tobacco use date assessed: 12/14/24 Fall risk assessment: 1 Fall in past year Last assessed Fall Risk: 12/14/24 Dental Screening Dental Screen Date: 12/14/24 Did you have a dental visit in the last 12 months?: Yes Did you have a dental problem in the last 6 months where you did not have access to dental care?: No Was dental information given to patient?: Patient has dentist HPI HPI Comments History of Present Illness Details 69-year-old male, accompanied by his daughter,, presents for hypertension, hyperlipidemia, and anxiety follow-up. He admits to taking his medications as prescribed without adverse reactions. He has been making healthy dietary choices and exercising routinely. He reports controlled anxiety and depressive symptoms. He offers no complaints and denies acute symptoms at this time. Patient's daughter notes that they have decided as a family to hold off on the patient's lung screening at this time as it is best for the patient's mental health. They will consider lung screening in the future. [facility] Medical History (Updated 11/13/24 @ 08:45 by Xu Betancourt CNP) Arthritis High blood pressure COPD (chronic obstructive pulmonary disease) Surgical History (Updated 03/13/24 @ 09:26 by TIM Jones) Status post excisional biopsy Family History (Updated 03/13/24 @ 09:27 by TIM Jones) Father High blood pressure Maternal Grandfather Prostate cancer Social History Housing: House Patient Tobacco Use Status: Former Tobacco user Tobacco use type: Cigarette e-Cigarette/Vaping Use: Never Used service: No Current occupational status: retired Cognitive needs: No Hearing needs: No Vision needs: No Questionnaire PHQ-9 Over the last 2 weeks, how often have you been bothered by any of the following problems? 1. Little interest or pleasure in doing things: not at all 2. Feeling down, depressed, or hopeless: not at all 3. Trouble falling or staying asleep, or sleeping too much: not at all 4. Feeling tired or having little energy: not at all 5. Poor appetite or overeating: not at all 6. Feeling bad about yourself - or that you are a failure or have let yourself or your family down: not at all 7. Trouble concentrating on things, such as reading the newspaper or watching television: not at all 8. Moving or speaking so slowly that other people could have noticed. Or the opposite - being so fidgety or restless that you have been moving around a lot more than usual: not at all 9. Thoughts that you would be better off or of hurting yourself in some way: not at all Total score: 0 Depression Screening Interpretation: Negative Depression Screening Done: Yes 47069 - PHQ-9 Billing: Yes Source: Developed by Drs. Saurav Patel, Aminta Angeles, Frank Lopez and colleagues, with an educational salvador from [employer]. Thrive Questionnaire Date Thrive assessed: 12/14/24 I am a: Patient What is your living situation today?: I have a steady place to live Within the past 12 months, did the food you bought not last and you didn't have the money to get more?: I choose not to answer this question Within the past 12 months, did you worry whether your food would run out before you got money to buy more?: I choose not to answer this question Do you have trouble paying for medicines?: I choose not to answer this question Do you have trouble getting transportation to medical appointments?: No Do you have trouble paying your heating and electricity bill?: No Do you have trouble taking care of your child, family member or friend?: No Do you have trouble with day-to-day activities such as bathing, preparing meals, shopping, managing finances, etc.?: No Are you currently unemployed and looking for a job?: No Are you interested in more education?: No Please select the resources that you would like help with: None Currently or been in a relationship where the following occur: No concerns reported THRIVE Score: 0 AUDIT C Alcohol Use Questionnaire (AUDIT-C) 1. How often do you have a drink containing alcohol?: 2-3 times a week 2. How many drinks containing alcohol do you have on a typical day when you are drinking?: 1 or 2 3. How often do you have six or more drinks on one occasion?: Never Total Score: 3 Score Reviewed/Action Taken: Yes LAZARO-7 AMB Questionnaire LAZARO-7 Date LAZARO - 7 assessed: 12/14/24 Feeling nervous, anxious, or on edge: 0 = Not at all Not being able to stop or control worryin = Not at all Worrying too much about different things: 0 = Not at all Trouble relaxin = Not at all Being so restless that it is hard to sit still: 0 = Not at all Becoming easily annoyed or irritable: 0 = Not at all Feeling afraid as if something awful might happen: 0 = Not at all Total LAZARO-7 score (0-4 normal; 5-9 mild; 10-14 moderate; 15-21 severe): 0 Source: Developed by Drs. Saurav Patel, Aminta Angeles, Frank Lopez and colleagues, with an educational salvador from [employer]. LAZARO-7 Assessment Billing LAZARO-7 Assessment Tool: LAZARO-7 Assessment 16724 Review of Systems Const Details: Const Denies chills, Denies fatigue, Denies fever(s), Denies headache(s) and Denies weakness ENT Denies dizziness and Denies headache(s) Card Denies chest pain, Denies lightheadedness, Denies dyspnea and Denies other (Palpitations) Resp Denies cough, Denies dyspnea, Denies wheezing and Denies other ( shortness of breath) GI Denies abdominal pain, Denies melena, Denies hematochezia, Denies change in bowel habits, Denies dyspepsia and Denies nausea Denies hematuria and Denies dysuria Musc Denies abnormal gait, Denies myalgias, Denies arthralgias, Denies numbness and Denies tingling Skin/Breast Denies rash, Denies unusual bruising and Denies wounds Neuro Denies abnormal gait, Denies dizziness, Denies headache(s), Denies memory loss, Denies numbness, Denies Sensory deficit (Neuro), Denies tingling and Denies weakness Psych Denies anxiety, Denies depression, Denies memory loss Endo Denies cold intolerance, Denies fatigue, Denies heat intolerance, Denies polydipsia and Denies polyuria Aller/Immun Denies wheezing Physical exam (Primary Care) Vital Signs: Last Vital Signs Temp 98.3 F 12/14/24 08:16 Pulse 56 12/14/24 08:16 Resp 16 12/14/24 08:16 BP 138/58 L 12/14/24 08:16 Pulse Ox 97 12/14/24 08:16 Oxygen Delivery Method Room Air 12/14/24 08:16 BMI result Body Mass Index 30.6 Tobacco/Smoking Status: Tobacco use Status Tobacco use date assessed 12/14/24 12/14/24 08:16 Patient Tobacco Use Status Former Tobacco user 12/14/24 08:16 Tobacco use type Cigarette 12/14/24 08:16 e-Cigarette/Vaping Use Never Used 12/14/24 08:16 PHQ-9: PHQ-9 Score PHQ-9: Total score 0 12/14/24 08:21 Depression Screening Interpretation: Negative Thrive Assessment: Date of Thrive Assessment Date Thrive assessed 12/14/24 12/14/24 08:21 Currently or been in a relationship where the following occur: No concerns reported Const Other: General: no acute distress and well developed Nutritional Appearance: well nourished Orientation/consciousness: patient oriented x3 HENMT Head: Yes normocephalic and Yes atraumatic Eyes General: appearance normal, both eyes and all related structures Pupils: Equal, round and reactive pupils present EOM: EOMs intact bilaterally Resp Effort & Inspection: normal respiratory effort Auscultation: clear to auscultation bilaterally Cardio Rate: regular rate Rhythm: regular rhythm Heart sounds: S1 normal heart sound present, S2 normal heart sound present, no gallops, no murmurs and no rubs GI Palpation (GI): No Abdominal aortic bruit present, Soft to palpation, nontender, No hepatosplenomegaly present and No Rebound tenderness present Auscultation: normal bowel sounds General: Yes no CVA tenderness Back/Spine/Pelvis Back: no CVA tenderness Cervical Spine: cervical ROM normal and No Cervical spine tenderness Thoracic/Lumbar Spine: thoraco-lumbar ROM normal, No pain with thoraco-lumbar ROM, No thoracic spinal tenderness and No lumbar spinal tenderness Extrem General: Yes normal to inspection, No edema and No calf tenderness Skin General: warm and dry. Normal skin color. Normal skin turgor Neuro General: patient oriented x3, gait normal and no focal neuro deficit Cranial nerves: Yes Equal, round and reactive pupils present Cognition (Neuro): normal cognition Gait exam (Neuro): Normal gait present Sensory Exam: No Sensory deficit (Neuro) Psych Appearance: grossly normal Affect: normal affect Attitude: cooperative Thought process: Normal thought process present Coding Level of Care Code Est Pt Level 3 (87520) Diagnoses High blood pressure I10 Hyperlipidemia E78.5 Anxiety F41.9 Screening for lung cancer Z12.2 Laboratory tests ordered as part of a complete physical exam (CPE) Z00.00 Additional Codes LAZARO-7 Assessment Billing - LAZARO-7 Assessment Tool: LAZARO-7 Assessment 93231 ([id number]) PHQ-9 - 30364 - PHQ-9 Billing: Yes ([id number]) Assessment & Plan Assessment & Plan (1) High blood pressure: Code(s): I10 - Essential (primary) hypertension Category: Medical Plan: Resting blood pressure is 120/60, within goal of less than 130/80. Continue current treatment regimen. Advised to perform lab work 2-3 days before next visit. Follow-up in 3 months for an extended physical exam or sooner with symptoms or concerns. Verbalized understanding and agreed with treatment plan. (2) Hyperlipidemia: Code(s): E78.5 - Hyperlipidemia, unspecified Category: Medical Plan: Recent lipid panel level is normal. Continue current treatment regimen. Will recheck lipid panel levels in 3 months We will make changes as needed. Verbalized understanding and agreed with treatment plan. (3) Anxiety: Code(s): F41.9 - Anxiety disorder, unspecified Category: Medical Plan: Controlled anxiety symptoms. PHQ-9 And LAZARO-7 score is normal. Continue current treatment regimen. Follow-up with worsening or new symptoms. Verbalized understanding and agreed with treatment plan. (4) Screening for lung cancer: Code(s): Z12.2 - Encounter for screening for malignant neoplasm of respiratory organs Category: Medical Plan: Patient's daughter notes that they have decided as a family to hold off on the patient's lung screening at this time as it is best for the patient's mental health. They will consider lung screening in the future. Pulmonology referral for lung cancer screening discontinued at this time. Advised to follow-up as needed. Verbalized understanding and agreed with the plan. (5) Laboratory tests ordered as part of a complete physical exam (CPE): Code(s): Z00.00 - Encounter for general adult medical examination without abnormal findings Category: Medical Plan: Fasting labs ordered as part of a complete physical exam. Advised to fast for at least 10 hours before getting labs drawn. May drink water Verbalized understanding and agreed with treatment plan. Orders: Orders Complete Blood Count Auto Diff 3 Months Z00.00 - Encounter for general adult medical examination without abnormal findings Comprehensive [place]. Panel Fast 3 Months Z00.00 - Encounter for general adult medical examination without abnormal findings Lipid Panel 3 Months Z00.00 - Encounter for general adult medical examination without abnormal findings Microalbumin, Random (w Creat) 3 Months Z00.00 - Encounter for general adult medical examination without abnormal findings UA CC w/rflx Micro + Cult 3 Months Z00.00 - Encounter for general adult medical examination without abnormal findings Vitamin D 25-OH Total 3 Months Z00.00 - Encounter for general adult medical examination without abnormal findings TSH reflex Free T4 3 Months Z00.00 - Encounter for general adult medical examination without abnormal findings
[2024-12-14 08:16] VITALS: BP 138/58; PULSE 56; RESP 16; TEMP 36.8; O2SAT 97; BMI 30.6
[2024-12-14 08:34] VITALS: BP 128/60
== END 2024-12-14 08:39 | disposition home or self-care (01) ==
LOC: HO.HMCFM 08:09
PROVIDERS: PCP Nurse Practitioner Family; Visit Provider Nurse Practitioner Family
DX: I10 Essential (primary) hypertension (principal); E78.5 Hyperlipidemia, unspecified; F41.9 Anxiety disorder, unspecified; Z12.2 Encounter for screening for malignant neoplasm of respiratory organs; Z00.00 Encounter for general adult medical examination without abnormal findings

== ENCOUNTER → 2024-12-14 08:09 | Outpatient (BNVA) | payer BC, SELFPAY | PROVIDERS: PCP Nurse Practitioner Family; Visit Provider Nurse Practitioner Family | DX: I10 Essential (primary) hypertension (principal); E78.5 Hyperlipidemia, unspecified; F41.9 Anxiety disorder, unspecified | CPT/HCPCS: 96127 ==

== ENCOUNTER 2025-02-23 07:39 | Outpatient (REF) | payer BC, SELFPAY ==
[2025-02-23 11:19] LABS: MANUAL DIFF FLAG NO
[2025-02-23 11:35] LABS: Basophils Absolute Auto 0.1 X10*3/uL (0.0-0.2); Eosinophils Absolute Auto 0.3 X10*3/uL (0.0-0.4); Eosinophils Percent Auto 3.9 % (0-4); Hematocrit 44.2 % (42.0-52.0); Hemoglobin 15.8 g/dl (14.0-18.0); Imm Gran Abs Auto 0.03 X10*3/uL (0.00-0.03); Imm Gran Pct Auto 0.4 % (0.0-0.4); Lymphocytes Absolute Auto 2.2 X10*3/uL (1.2-4.9); Lymphocytes Percent Auto 31.9 % (20-40); Mean Corpuscular HGB Conc 35.7 g/dl (31.0-36.0); Mean Corpuscular Hemoglobin 35.6 pg (27.0-33.0); Mean Corpuscular Volume 99.5 fL (80.0-98.0); Mean Platelet Volume 9.7 fL (9.4-12.4); Monocytes Absolute Auto 0.7 X10*3/uL (0.1-1.2); Monocytes Percent Auto 10.2 % (2-11); Neutrophils Absolute Auto 3.7 x10*3/uL (2.0-8.3); Neutrophils Percent Auto 52.6 % (45-73); Platelet Count 295 X10*3/uL (160-400); Red Blood Count 4.44 X10*6/uL (4.60-5.80); Red Cell Distribution Width 13.2 % (11.0-16.0)
[2025-02-23 11:55] LABS: Alanine Aminotransferase 23 U/L (0-40); Albumin Level 4.4 g/dL (3.5-5.0); Alkaline Phosphatase 64 U/L (39-117); Anion Gap 14 (12-20); Aspartate Amino Transferase 21 U/L (5-37); Bilirubin Total 0.6 mg/dL (0.0-1.0); Blood Urea Nitrogen 14 mg/dL (9-16); Carbon Dioxide 26 mmol/L (22-29); Chloride 103 mmol/L (96-108); Cholesterol 129 mg/dL (<200); Estimated Glomerular Filt Rate > 60; Glucose Fasting 133 mg/dL (60-99); HDL Cholesterol 53 mg/dL (>40); LDL Cholesterol Calculated 62 mg/dL (<100); Potassium 3.4 mmol/L (3.3-5.1); Sodium 140 mmol/L (135-145); Total Protein 7.2 g/dL (6.5-8.0); Triglycerides 72 mg/dL (<150)
[2025-02-23 12:16] LABS: Vitamin D 25-OH Total 55.2 ng/mL (>30)
== END 2025-02-23 07:40 | disposition home or self-care (01) ==
LOC: HO.WFDLDS 07:39
PROVIDERS: Visit Provider Nurse Practitioner Family
DX: Z00.00 Encounter for general adult medical examination without abnormal findings (principal); Z13.6 Encounter for screening for cardiovascular disorders
CPT/HCPCS: 36415; 80053; 80061; 82306; 84443; 85025

== ENCOUNTER 2025-03-02 11:14 | Outpatient (REF) | payer BC, SELFPAY | END 2025-03-02 11:15 | disposition home or self-care (01) | LOC: HO.WFDLDS 11:14 | PROVIDERS: Visit Provider Nurse Practitioner Family | DX: I10 Essential (primary) hypertension (principal) | CPT/HCPCS: 36415 ==

== ENCOUNTER 2025-03-09 07:34 | Outpatient (AMB) | payer BC, SELFPAY ==
--- NOTE | 2025-03-09 07:44 | A.OFFPC_ITS ---
Vital Signs 03/09/25 08:10 Height 6 ft 2 in Weight 236 lb BMI 30.3 BP 126/60 Blood Pressure Location Rt brachial Position Sitting Respiration 18 Pulse 62 Pulse Source Pulse Oximeter Temp 98.2 F Temp Source Temporal Artery Scan Pulse Oximetry (%) 96 Oxygen Delivery Method Room Air Intake Visit Reasons: 3 mos CPE, labs review Intake Note: Jefry presents in the office today for his physical and lab review. Allergies No Known Allergies Allergy (Verified 03/09/25 08:07) Tobacco use date assessed: 03/09/25 Fall risk assessment: No Falls in past year Last assessed Fall Risk: 03/09/25 Dental Screening Dental Screen Date: 03/09/25 Did you have a dental visit in the last 12 months?: Yes Did you have a dental problem in the last 6 months where you did not have access to dental care?: No Was dental information given to patient?: Patient has dentist HPI HPI Comments History of Present Illness Details 69-year-old male presents for an extende d physical exam and review of recent lab results. He admits to taking his medications as prescribed without adverse reactions. Denies current anxiety or depressive symptoms. Acute issue(s) - Reports chronic bilateral knee pain. He takes Tylenol arthritis with some relief. Past Medical History - Hypertension, hyperlipidemia, COPD, ar thritis in both knees, anxiety Social History - Former smoker, quit over a year ago, h /o smoking 1-3 pack daily x 51 yrs. Does not vape. Drinks 2-3 beers 2-3 times weekly. Smokes 3 joints of cannabis daily - Has been making healthy dietary choice s. Walks regularly. 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 Referre d to ophthalmology for routine eye exam - Last dental visit was 3 months ago - Last tetanus vaccine was more than 10 years ago; he will get the Tdap vaccine at his next visit - He notes that he was vaccinated for th e flu last fall - He has not been vaccinated for shingle s or pneumonia; encouraged to get vaccinated for both at the local pharmacy - Last colonoscopy was 10 years ago at [facility] [place]: normal. [place] [facility] [place] [place] [facility] Medical History (Updated 03/11/25 @ 18:23 by Xu Betancourt CNP) Arthritis High blood pressure COPD (chronic obstructive pulmonary disease) Surgical History (Updated 03/13/24 @ 09:26 by TIM Jones) Status post excisional biopsy Family History Father High blood pressure Maternal Grandfather Prostate cancer Social History (Updated 03/09/25 @ 08:08 by Jovana Amaya MA) Housing: House Alcohol intake: current Patient Tobacco Use Status: Former Tobacco user Tobacco use type: Cigarette e-Cigarette/Vaping Use: Never Used Substance Use Type: Marijuana service: No Current occupational status: retired Cognitive needs: No Hearing needs: No Vision needs: No Questionnaire PHQ-9 Over the last 2 weeks, how often have you been bothered by any of the following problems? 1. Little interest or pleasure in doing things: not at all 2. Feeling down, depressed, or hopeless: not at all 3. Trouble falling or staying asleep, or sleeping too much: not at all 4. Feeling tired or having little energy: not at all 5. Poor appetite or overeating: not at all 6. Feeling bad about yourself - or that you are a failure or have let yourself or your family down: not at all 7. Trouble concentrating on things, such as reading the newspaper or watching television: not at all 8. Moving or speaking so slowly that other people could have noticed. Or the opposite - being so fidgety or restless that you have been moving around a lot more than usual: not at all 9. Thoughts that you would be better off or of hurting yourself in some way: not at all Total score: 0 Depression Screening Interpretation: Negative Depression Screening Done: Yes 26625 - PHQ-9 Billing: Yes Source: Developed by Drs. Saurav Patel, Aminta Angeles, Frank Lopez and colleagues, with an educational salvador from [employer]. Thrive Questionnaire Date Thrive assessed: 03/09/25 I am a: Patient What is your living situation today?: I have a steady place to live Within the past 12 months, did the food you bought not last and you didn't have the money to get more?: I choose not to answer this question Within the past 12 months, did you worry whether your food would run out before you got money to buy more?: I choose not to answer this question Do you have trouble paying for medicines?: I choose not to answer this question Do you have trouble getting transportation to medical appointments?: No Do you have trouble paying your heating and electricity bill?: No Do you have trouble taking care of your child, family member or friend?: No Do you have trouble with day-to-day activities such as bathing, preparing meals, shopping, managing finances, etc.?: No Are you currently unemployed and looking for a job?: No Are you interested in more education?: No Please select the resources that you would like help with: None Currently or been in a relationship where the following occur: No concerns reported THRIVE Score: 0 AUDIT C Alcohol Use Questionnaire (AUDIT-C) 1. How often do you have a drink containing alcohol?: Monthly or less 2. How many drinks containing alcohol do you have on a typical day when you are drinking?: 1 or 2 Total Score: 1 Score Reviewed/Action Taken: No LAZARO-7 AMB Questionnaire LAZARO-7 Date LAZARO - 7 assessed: 03/09/25 Feeling nervous, anxious, or on edge: 0 = Not at all Not being able to stop or control worryin = Not at all Worrying too much about different things: 0 = Not at all Trouble relaxin = Not at all Being so restless that it is hard to sit still: 0 = Not at all Becoming easily annoyed or irritable: 0 = Not at all Feeling afraid as if something awful might happen: 0 = Not at all Total LAZARO-7 score (0-4 normal; 5-9 mild; 10-14 moderate; 15-21 severe): 0 Source: Developed by Drs. Saurav Patel, Aminta Angeles, Frank Lopez and colleagues, with an educational salvador from [employer]. LAZARO-7 Assessment Billing LAZARO-7 Assessment Tool: LAZARO-7 Assessment 71904 Review of Systems Const Details: Denies chills, Denies fatigue, Denies fever(s), Denies headache(s) and Denies weakness HEENT Denies change in vision, Denies dizziness, Denies headache(s), Denies hearing loss, Denies nasal congestion, Denies sinus pain, Denies sinus pressure and Denies sore throat Card Denies chest pain, Denies lightheadedness, Denies dyspnea and Denies other (palpitations) Resp Denies cough, Denies dyspnea and Denies wheezing GI Denies abdominal pain, Denies melena, Denies hematochezia, Denies change in bowel habits, Denies dyspepsia and Denies nausea Denies hematuria and Denies dysuria Musc Reports chronic bilateral knee pain, Denies abnormal gait, Denies numbness and Denies tingling Skin/Breast Denies rash, Denies unusual bruising and Denies wounds Neuro Denies abnormal gait, Denies dizziness, Denies headache(s), Denies memory loss, Denies numbness, Denies Sensory deficit (Neuro), Denies tingling and Denies weakness Psych Denies anxiety, Denies depression and Denies memory loss Endo Denies cold intolerance, Denies fatigue, Denies heat intolerance, Denies polydipsia and Denies polyuria Julius/Lymph Denies easy bleeding and Denies easy bruising Aller/Immun Denies wheezing Physical exam (Primary Care) Vital Signs: Last Vital Signs Temp 98.2 F 03/09/25 08:10 Pulse 62 03/09/25 08:10 Resp 18 03/09/25 08:10 BP 126/60 03/09/25 08:10 Pulse Ox 96 03/09/25 08:10 Oxygen Delivery Method Room Air 03/09/25 08:10 BMI result Body Mass Index 30.3 Tobacco/Smoking Status: Tobacco use Status Tobacco use date assessed 03/09/25 03/09/25 08:14 Patient Tobacco Use Status Former Tobacco user 03/09/25 08:08 Tobacco use type Cigarette 03/09/25 08:08 e-Cigarette/Vaping Use Never Used 03/09/25 08:08 PHQ-9: PHQ-9 Score PHQ-9: Total score 0 03/09/25 16:22 Depression Screening Interpretation: Negative Thrive Assessment: Date of Thrive Assessment Date Thrive assessed 03/09/25 03/09/25 08:14 Currently or been in a relationship where the following occur: No concerns reported Const Other: General: no acute distress, well developed, alert and awake Nutritional Appearance: well nourished Orientation/consciousness: patient oriented x3 HENMT Head: Yes normocephalic and Yes atraumatic Ears: hearing grossly normal bilaterally and TM's normal bilaterally General nose exam: Normal external nose present and Normal nares present Mouth: Normal oral and palatal mucosa present and moist mucous membranes Teeth and gingiva: dentition normal Throat: Yes oropharynx normal Eyes Pupils: Equal, round and reactive pupils present and Pupil accommodation reflex normal EOM: EOMs intact bilaterally Neck Neck: Yes normal visual inspection, Yes no lymphadenopathy and Yes trachea midline Thyroid: Thyroid normal Carotids: no bruits Lymphatic: no lymphadenopathy noted Chest Chest palpation & inspection: normal inspection of the chest Resp Effort & Inspection: normal respiratory effort Auscultation: clear to auscultation bilaterally Cardio Rate: regular rate Rhythm: regular rhythm Heart sounds: S1 normal heart sound present, S2 normal heart sound present, no gallops, no murmurs and no rubs Bruits: no abdominal aortic bruits and no carotid bruits GI Palpation (GI): No Abdominal aortic bruit present, Soft to palpation, nontender, No hepatosplenomegaly present and No Rebound tenderness present Auscultation: normal bowel sounds General: Yes no CVA tenderness Back/Spine/Pelvis Back: no CVA tenderness Cervical Spine: cervical ROM normal and No Cervical spine tenderness Thoracic/Lumbar Spine: thoraco-lumbar ROM normal, No pain with thoraco-lumbar ROM, No thoracic spinal tenderness and No lumbar spinal tenderness Skin General: warm and dry. Normal skin color. Normal skin turgor Lesions: no lesions Rashes: no rashes Trauma: no lacerations or abrasions Wounds: no wounds Nails: normal Neuro General: patient oriented x3, gait normal and CN's II-XI intact bilaterally Cranial nerves: Yes Equal, round and reactive pupils present Cognition (Neuro): normal cognition Gait exam (Neuro): Normal gait present Motor exam (neuro): 5/5 motor strength present throughout Sensory Exam: No Sensory deficit (Neuro) Deep tendon reflexes (DTR's): Right patellar reflex intensity grade: 2+ and Left patellar reflex intensity grade: 2+ Extrem General: Yes normal to inspection, No edema and No calf tenderness Psych Appearance: grossly normal Affect: normal affect Attitude: cooperative Thought process: Normal thought process present Results AMB Hemoglobin A1c AMB Hemoglobin A1c 5.6 % Last Edit by Jovana Amaya MA on 03/09/25 08:26 Results Reviewed Results Reviewed: Laboratory Last Values Hgb A1c (Clinic) 5.6 % (4.0-6.0) 03/09/25 07:56 Coding Level of Care Code Est Pt Level 4 (09319) Est Pt Prev Care >65y(84504) Diagnoses Normal physical examination, routine Z00.00 High blood pressure I10 Hyperlipidemia E78.5 Prediabetes R73.03 Arthritis of both knees M17.0 Sleep disturbance G47.9 Anxiety F41.9 Eye exam, routine Z01.00 Colon cancer screening Z12.11 Vaccine counseling Z71.85 History of smoking 25-50 pack years Z87.891 Additional Codes LAZARO-7 Assessment Billing - LAZARO-7 Assessment Tool: LAZARO-7 Assessment 85068 ([id number]) PHQ-9 - 85081 - PHQ-9 Billing: Yes ([id number]) Assessment & Plan Assessment & Plan (1) Normal physical examination, routine: Code(s): Z00.00 - Encounter for general adult medical examination without abnormal findings Category: Medical Plan: No significant functional limitations noted. Continue current treatment regimen. Healthy diet and routine exercise encouraged. Follow-up as planned. Verbalized understanding and agreed with the treatment plan. (2) High blood pressure: Code(s): I10 - Essential (primary) hypertension Category: Medical Plan: Blood pressure is 126/60, within goal of less than 140/90. Continue current treatment regimen. Low-sodium diet encouraged. Follow-up in 3 months or sooner with symptoms or concerns. Verbalized understanding and agreed with the treatment plan. (3) Hyperlipidemia: Code(s): E78.5 - Hyperlipidemia, unspecified Category: Medical Plan: Recent lipid panel level is normal. Continue current treatment regimen. Advised to limit foods high in saturated fat and avoid foods high in trans fat. Routine exercise encouraged. Will recheck lipid panel level annually or if presents with with related symptoms or concerns. Verbalized understanding and agreed with the plan. (4) Prediabetes: Code(s): R73.03 - Prediabetes Category: Medical Plan: Recent fasting glucose is elevated, 133. A1c today is 5.6%. Healthy diet and routine exercise encouraged. Will monitor A1c annually or if presents with related symptoms or concerns. Verbalized understanding and agreed with the plan. (5) Arthritis of both knees: Code(s): M17.0 - Bilateral primary osteoarthritis of knee Category: Medical Plan: Reports chronic pain to both knees. He takes Tylenol arthritis with some relief. No overt injury or trauma. Continue current treatment management. Lidocaine patch ordered; advised to use as prescribed. Instructed on the risks, benefits, and potential adverse reactions of the medications. Warm/cool compresses encouraged. Follow-up with worsening or new symptoms. Verbalized understanding and agreed with the plan. 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 Instructed on sleep hygiene. May take melatonin as needed. [place]erred [place] [facility] [place] for sleep study. Follow-up with worsening or new symptoms. Verbalized understanding and agreed with the plan. (7) Anxiety: Code(s): F41.9 - Anxiety disorder, unspecified Category: Medical Plan: Denies current anxiety or depressive symptoms. PHQ-9 and LAZARO-7 scores are normal. Continue current treatment regimen. Routine exercise encouraged. Follow-up in 3 months or sooner with symptoms or concerns. Verbalized understanding and agreed with the treatment plan. (8) Eye exam, routine: Code(s): Z01.00 - Encounter for examination of eyes and vision without abnormal findings Category: Medical Plan: His last eye exam was 6 years ago. Referred to ophthalmology for routine eye exam. (9) Colon cancer screening: Code(s): Z12.11 - Encounter for screening for malignant neoplasm of colon Category: Medical Plan: His last colonoscopy was 10 years ago at [facility] [place]: normal. Referred [place] [facility] [place] for a colonoscopy. (10) Vaccine counseling: Code(s): Z71.85 - Encounter for immunization safety counseling Category: Medical Plan: He has not been vaccinated for shingles or pneumonia. Instructed on importance of these vaccines and encouraged to get vaccinated for both at the local pharmacy. Verbalized understanding and agreed with the plan. (11) History of smoking 25-50 pack years: Code(s): Z87.891 - Personal history of nicotine dependence Category: Social Hx Plan: Former smoker, quit over a year ago, h/o smoking 1-3 pack daily x 51 yrs. Referred to [facility] [place] for lung cancer screening. Orders: Orders AMB Hemoglobin A1c 03/09/25 Z13.9 - Encounter for screening, unspecified Referrals Lung Cancer Screening Referral Z87.891 - Personal history of nicotine dependence Ophthalmology Referral Z01.00 - Encounter for examination of eyes and vision without abnormal findings Gastroenterology Referral Z12.11 - Encounter for screening for malignant neoplasm of colon Sleep Medicine Referral G47.9 - Sleep disorder, unspecified Medications: New lidocaine 5% leave on most painful area for up to 12 hrs 1 patch topical DAILY 30 ea 3RF
[2025-03-09 08:10] VITALS: BP 126/60; PULSE 62; RESP 18; TEMP 36.8; O2SAT 96; BMI 30.3
== END 2025-03-09 08:39 | disposition home or self-care (01) ==
LOC: HO.HMCFM 07:35
PROVIDERS: PCP Nurse Practitioner Family; Visit Provider Nurse Practitioner Family
DX: Z13.9 Encounter for screening, unspecified (principal)

== ENCOUNTER → 2025-03-09 07:34 | Outpatient (BNVA) | payer BC, SELFPAY | PROVIDERS: PCP Nurse Practitioner Family; Visit Provider Nurse Practitioner Family | DX: Z00.00 Encounter for general adult medical examination without abnormal findings (principal); I10 Essential (primary) hypertension; E78.5 Hyperlipidemia, unspecified; J44.9 Chronic obstructive pulmonary disease, unspecified; M17.0 Bilateral primary osteoarthritis of knee; F41.9 Anxiety disorder, unspecified; R73.03 Prediabetes; G47.9 Sleep disorder, unspecified; Z71.85 Encounter for immunization safety counseling; Z87.891 Personal history of nicotine dependence | CPT/HCPCS: 83036; 96127 ==

== ENCOUNTER 2025-03-09 09:16 | Outpatient (REF) | payer BC, SELFPAY ==
[2025-03-09 11:34] LABS: Appearance Urine Clear; Color Urine Yellow; Glucose Urine UA Negative (Negative); Leukocyte Esterase Urine Negative (Negative); Nitrite Urine Negative (Negative); Urine Blood Negative (Negative); Urine Ketones Negative (Negative); Urine Protein Negative (Neg-Trace)
[2025-03-09 12:18] LABS: Creatinine Urine 87.48 mg/dL; Microalbum/Creatinine Ratio Ur 11.4 ug/mg cr (<30)
== END 2025-03-09 09:17 | disposition home or self-care (01) ==
LOC: HO.WFDLDS 09:16
PROVIDERS: Visit Provider Nurse Practitioner Family
DX: Z00.00 Encounter for general adult medical examination without abnormal findings (principal)
CPT/HCPCS: 81003; 82043; 82570

== ENCOUNTER 2025-06-12 08:03 | Outpatient (AMB) | payer BC, SELFPAY ==
--- NOTE | 2025-06-12 08:14 | MHC.PC.OV ---
Vital Signs 06/12/25 08:20 Height 6 ft 2 in Weight 239 lb BMI 30.7 BP 148/67 H Blood Pressure Location Rt brachial Position Sitting Respiration 16 Pulse 58 Pulse Source Pulse Oximeter Temp 98.5 F Temp Source Temporal Artery Scan Pulse Oximetry (%) 97 Oxygen Delivery Method Room Air Intake Visit Reasons: 3 mos HTN, anxiety Intake Note: patient here for 3 months follow up on HTN and anxiety Chucking Lathe Operator Required: No Allergies No Known Allergies Allergy (Verified 06/12/25 08:50) Medication List - Last Reconciled 06/12/25 by Xu Betancourt CNP amiloride-hydrochlorothiazide 5-50 mg 1 tab PO DAILY amlodipine-benazepril 10-40 mg 1 cap PO DAILY aspirin 81 mg PO DAILY carvedilol 12.5 mg PO BID escitalopram oxalate 10 mg PO DAILY simvastatin 40 mg PO DAILY Tobacco use date assessed: 06/12/25 Fall risk assessment: No Falls in past year Last assessed Fall Risk: 06/12/25 Dental Screening Dental Screen Date: 06/12/25 Did you have a dental visit in the last 12 months?: Yes Did you have a dental problem in the last 6 months where you did not have access to dental care?: No Was dental information given to patient?: Patient has dentist HPI HPI Comments History of Present Illness Details 69-year-old male presents for hypertension and anxiety follow-up. He admits to taking his medications as prescribed without adverse reactions. He notes low-sodium diet. Reports controlled anxiety symptoms. He offers no complaints and denies acute symptoms at this time. [facility] Medical History (Updated 03/11/25 @ 18:23 by Xu Betancourt CNP) Arthritis High blood pressure COPD (chronic obstructive pulmonary disease) Surgical History (Updated 03/13/24 @ 09:26 by TIM Jones) Status post excisional biopsy Family History Father High blood pressure Maternal Grandfather Prostate cancer Social History (Updated 03/09/25 @ 08:08 by Jovana Amaya MA) Housing: House Alcohol intake: current Patient Tobacco Use Status: Former Tobacco user Tobacco use type: Cigarette e-Cigarette/Vaping Use: Never Used Substance Use Type: Marijuana service: No Current occupational status: retired Cognitive needs: No Hearing needs: No Vision needs: No Questionnaire PHQ-9 Over the last 2 weeks, how often have you been bothered by any of the following problems? 1. Little interest or pleasure in doing things: not at all 2. Feeling down, depressed, or hopeless: not at all 3. Trouble falling or staying asleep, or sleeping too much: not at all 4. Feeling tired or having little energy: not at all 5. Poor appetite or overeating: not at all 6. Feeling bad about yourself - or that you are a failure or have let yourself or your family down: not at all 7. Trouble concentrating on things, such as reading the newspaper or watching television: not at all 8. Moving or speaking so slowly that other people could have noticed. Or the opposite - being so fidgety or restless that you have been moving around a lot more than usual: not at all 9. Thoughts that you would be better off or of hurting yourself in some way: not at all Total score: 0 Depression Screening Interpretation: Negative Depression Screening Done: Yes 65122 - PHQ-9 Billing: Yes Source: Developed by Drs. Saurav Patel, Aminta Angeles, Frank Lopez and colleagues, with an educational salvador from [employer]. Thrive Questionnaire Date Thrive assessed: 11/06/24 I am a: Patient What is your living situation today?: I have a steady place to live Within the past 12 months, did the food you bought not last and you didn't have the money to get more?: I choose not to answer this question Within the past 12 months, did you worry whether your food would run out before you got money to buy more?: I choose not to answer this question Do you have trouble paying for medicines?: I choose not to answer this question Do you have trouble getting transportation to medical appointments?: No Do you have trouble paying your heating and electricity bill?: No Do you have trouble taking care of your child, family member or friend?: No Do you have trouble with day-to-day activities such as bathing, preparing meals, shopping, managing finances, etc.?: No Are you currently unemployed and looking for a job?: No Are you interested in more education?: No Please select the resources that you would like help with: None Currently or been in a relationship where the following occur: No concerns reported THRIVE Score: 0 LAZARO-7 AMB Questionnaire LAZARO-7 Date LAZARO - 7 assessed: 06/12/25 Feeling nervous, anxious, or on edge: 0 = Not at all Not being able to stop or control worryin = Not at all Worrying too much about different things: 0 = Not at all Trouble relaxin = Not at all Being so restless that it is hard to sit still: 0 = Not at all Becoming easily annoyed or irritable: 0 = Not at all Feeling afraid as if something awful might happen: 0 = Not at all Total LAZARO-7 score (0-4 normal; 5-9 mild; 10-14 moderate; 15-21 severe): 0 Source: Developed by Drs. Saurav Patel, Aminta Angeles, Frank Lopez and colleagues, with an educational salvador from [employer]. LAZARO-7 Assessment Billing LAZARO-7 Assessment Tool: LAZARO-7 Assessment 93160 Review of Systems Const Details: Const Denies chills, Denies fatigue, Denies fever(s), Denies headache(s) and Denies weakness ENT Denies dizziness and Denies headache(s) Card Denies chest pain, Denies lightheadedness, Denies dyspnea and Denies other (Palpitations) Resp Denies cough, Denies dyspnea, Denies wheezing and Denies other ( shortness of breath) GI Denies abdominal pain, Denies melena, Denies hematochezia, Denies change in bowel habits, Denies dyspepsia and Denies nausea Denies hematuria and Denies dysuria Musc Denies abnormal gait, Denies myalgias, Denies arthralgias, Denies numbness and Denies tingling Skin/Breast Denies rash, Denies unusual bruising and Denies wounds Neuro Denies abnormal gait, Denies dizziness, Denies headache(s), Denies memory loss, Denies numbness, Denies Sensory deficit (Neuro), Denies tingling and Denies weakness Psych Denies anxiety, Denies depression, Denies memory loss Endo Denies cold intolerance, Denies fatigue, Denies heat intolerance, Denies polydipsia and Denies polyuria Aller/Immun Denies wheezing Physical exam (Primary Care) Vital Signs: Last Vital Signs Temp 98.5 F 06/12/25 08:20 Pulse 58 06/12/25 08:20 Resp 16 06/12/25 08:20 BP 148/67 H 06/12/25 08:20 Pulse Ox 97 06/12/25 08:20 Oxygen Delivery Method Room Air 06/12/25 08:20 BMI result Body Mass Index 30.7 Tobacco/Smoking Status: Tobacco use Status Tobacco use date assessed 06/12/25 06/12/25 08:26 Patient Tobacco Use Status Former Tobacco user 06/12/25 08:17 Tobacco use type Cigarette 06/12/25 08:17 e-Cigarette/Vaping Use Never Used 06/12/25 08:17 PHQ-9: PHQ-9 Score PHQ-9: Total score 0 06/12/25 08:26 Depression Screening Interpretation: Negative Thrive Assessment: Date of Thrive Assessment Date Thrive assessed 11/06/24 06/12/25 08:17 Currently or been in a relationship where the following occur: No concerns reported Const Other: General: no acute distress and well developed Nutritional Appearance: well nourished Orientation/consciousness: patient oriented x3 HENMT Head: Yes normocephalic and Yes atraumatic Eyes General: appearance normal, both eyes and all related structures Pupils: Equal, round and reactive pupils present EOM: EOMs intact bilaterally Resp Effort & Inspection: normal respiratory effort Auscultation: clear to auscultation bilaterally Cardio Rate: regular rate Rhythm: regular rhythm Heart sounds: S1 normal heart sound present, S2 normal heart sound present, no gallops, no murmurs and no rubs GI Palpation (GI): No Abdominal aortic bruit present, Soft to palpation, nontender, No hepatosplenomegaly present and No Rebound tenderness present Auscultation: normal bowel sounds General: Yes no CVA tenderness Back/Spine/Pelvis Back: no CVA tenderness Cervical Spine: cervical ROM normal and No Cervical spine tenderness Thoracic/Lumbar Spine: thoraco-lumbar ROM normal, No pain with thoraco-lumbar ROM, No thoracic spinal tenderness and No lumbar spinal tenderness Extrem General: Yes normal to inspection, No edema and No calf tenderness Skin General: warm and dry. Normal skin color. Normal skin turgor Neuro General: patient oriented x3, gait normal and no focal neuro deficit Cranial nerves: Yes Equal, round and reactive pupils present Cognition (Neuro): normal cognition Gait exam (Neuro): Normal gait present Sensory Exam: No Sensory deficit (Neuro) Psych Appearance: grossly normal Affect: normal affect Attitude: cooperative Thought process: Normal thought process present Coding Level of Care Code Est Pt Level 4 (93369) Diagnoses High blood pressure I10 Anxiety F41.9 Additional Codes LAZARO-7 Assessment Billing - LAZARO-7 Assessment Tool: LAZARO-7 Assessment 23383 ([id number]) PHQ-9 - 79088 - PHQ-9 Billing: Yes ([id number]) Assessment & Plan Assessment & Plan (1) High blood pressure: Code(s): I10 - Essential (primary) hypertension Category: Medical Plan: Resting blood pressure is 148/67, above goal of less than 140/90. Hydralazine 10 mg twice daily ordered; advised to take as prescribed. Continue to take amiloride-hydrochlorothiazide, amlodipine-benazepril, and carvedilol as prescribed. Low-sodium diet encouraged. Advised to monitor his blood pressure in the morning and evening 2-3 times weekly, record readings, and bring to next appointment. Follow-up in 1 month or sooner with symptoms or concerns. Verbalized understanding and agreed with treatment plan. (2) Anxiety: Code(s): F41.9 - Anxiety disorder, unspecified Category: Medical Plan: Reports controlled anxiety symptoms. PHQ-9 and LAZARO-7 scores are normal. Continue current treatment regimen. Routine exercise encouraged. Will continue to monitor. Verbalized understanding and agreed with the plan. Medications: New hydralazine 10 mg PO BID 60 tabs 3RF 30 days
[2025-06-12 08:20] VITALS: BP 148/67; PULSE 58; RESP 16; TEMP 36.9; O2SAT 97; BMI 30.7
== END 2025-06-12 09:56 | disposition home or self-care (01) ==
LOC: HO.HMCFM 08:04
PROVIDERS: PCP Nurse Practitioner Family; Visit Provider Nurse Practitioner Family
DX: I10 Essential (primary) hypertension (principal); F41.9 Anxiety disorder, unspecified

== ENCOUNTER → 2025-06-12 08:03 | Outpatient (BNVA) | payer BC, SELFPAY | PROVIDERS: PCP Nurse Practitioner Family; Visit Provider Nurse Practitioner Family | DX: I10 Essential (primary) hypertension (principal); F41.9 Anxiety disorder, unspecified | CPT/HCPCS: 96127 ==

== ENCOUNTER 2025-07-27 08:02 | Outpatient (AMB) | payer BC, SELFPAY ==
--- NOTE | 2025-07-27 08:15 | A.OFFPC_ITS ---
Vital Signs 07/27/25 08:19 07/27/25 08:48 Height 6 ft 2 in Weight 243 lb 2 oz BMI 31.2 BP 155/67 H 144/70 H Blood Pressure Location Rt brachial Lt brachial Position Sitting Sitting Respiration 16 Pulse 60 Pulse Source Pulse Oximeter Temp 97.5 F Temp Source Oral Pulse Oximetry (%) 96 Oxygen Delivery Method Room Air Intake Visit Reasons: F/u 1 month Intake Note: patient here for 1 month follow up for HTN and anxiety Dental Scheduling Coordinator Required: No Allergies No Known Allergies Allergy (Verified 07/27/25 08:45) Medication List - Last Reconciled 07/27/25 by Xu Betancourt CNP amiloride-hydrochlorothiazide 5-50 mg 1 tab PO DAILY amlodipine-benazepril 10-40 mg 1 cap PO DAILY aspirin 81 mg PO DAILY carvedilol 12.5 mg PO BID escitalopram oxalate 10 mg PO DAILY hydralazine 10 mg PO BID 30 days simvastatin 40 mg PO DAILY Tobacco use date assessed: 07/27/25 Fall risk assessment: No Falls in past year Last assessed Fall Risk: 07/27/25 Dental Screening Dental Screen Date: 07/27/25 Did you have a dental visit in the last 12 months?: Yes Did you have a dental problem in the last 6 months where you did not have access to dental care?: No Was dental information given to patient?: Patient has dentist HPI HPI Comments History of Present Illness Details 69-year-old male presents for hypertensi on follow-up. He admits to taking his medications as prescribed without adverse reactions. He has been maintaining a low-sodium diet. He reports controlled anxiety symptoms. He has not taking hydralazine since it was prescribed at his last visit because his home blood pressure readings have been controlled. He monitors his blood pressure morning and evening since his last visit. His AM BP readings, before taking his medications, are between 130-142/59-67 and PM BP readings before taking his medications are between 115/129/45-73. He offers no complaints and denies acute symptoms at this time. [facility] Medical History (Updated 03/11/25 @ 18:23 by Xu Betancourt CNP) Arthritis High blood pressure COPD (chronic obstructive pulmonary disease) Surgical History (Updated 03/13/24 @ 09:26 by TIM Jones) Status post excisional biopsy Family History Father High blood pressure Maternal Grandfather Prostate cancer Social History (Updated 03/09/25 @ 08:08 by Jovana Amaya MA) Housing: House Alcohol intake: current Patient Tobacco Use Status: Former Tobacco user Tobacco use type: Cigarette e-Cigarette/Vaping Use: Never Used Substance Use Type: Marijuana service: No Current occupational status: retired Current occupational exposures/hazards: No Cognitive needs: No Hearing needs: No Vision needs: No Questionnaire PHQ-9 Over the last 2 weeks, how often have you been bothered by any of the following problems? 1. Little interest or pleasure in doing things: not at all 2. Feeling down, depressed, or hopeless: not at all 3. Trouble falling or staying asleep, or sleeping too much: not at all 4. Feeling tired or having little energy: not at all 5. Poor appetite or overeating: not at all 6. Feeling bad about yourself - or that you are a failure or have let yourself or your family down: not at all 7. Trouble concentrating on things, such as reading the newspaper or watching television: not at all 8. Moving or speaking so slowly that other people could have noticed. Or the opposite - being so fidgety or restless that you have been moving around a lot more than usual: not at all 9. Thoughts that you would be better off or of hurting yourself in some way: not at all Total score: 0 Depression Screening Interpretation: Negative Depression Screening Done: Yes 66328 - PHQ-9 Billing: Yes Source: Developed by Drs. Saurav Patel, Aminta Angeles, Frank Lopez and colleagues, with an educational salvador from [employer]. Thrive Questionnaire Date Thrive assessed: 11/06/24 I am a: Patient What is your living situation today?: I have a steady place to live Within the past 12 months, did the food you bought not last and you didn't have the money to get more?: I choose not to answer this question Within the past 12 months, did you worry whether your food would run out before you got money to buy more?: I choose not to answer this question Do you have trouble paying for medicines?: I choose not to answer this question Do you have trouble getting transportation to medical appointments?: No Do you have trouble paying your heating and electricity bill?: No Do you have trouble taking care of your child, family member or friend?: No Do you have trouble with day-to-day activities such as bathing, preparing meals, shopping, managing finances, etc.?: No Are you currently unemployed and looking for a job?: No Are you interested in more education?: No Please select the resources that you would like help with: None Currently or been in a relationship where the following occur: No concerns reported THRIVE Score: 0 LAZARO-7 AMB Questionnaire LAZARO-7 Date LAZARO - 7 assessed: 07/27/25 Feeling nervous, anxious, or on edge: 0 = Not at all Not being able to stop or control worryin = Not at all Worrying too much about different things: 0 = Not at all Trouble relaxin = Not at all Being so restless that it is hard to sit still: 0 = Not at all Becoming easily annoyed or irritable: 0 = Not at all Feeling afraid as if something awful might happen: 0 = Not at all Total LAZARO-7 score (0-4 normal; 5-9 mild; 10-14 moderate; 15-21 severe): 0 Source: Developed by Drs. Saurav Patel, Aminta Angeles, Frank Lopez and colleagues, with an educational salvador from [employer]. LAZARO-7 Assessment Billing LAZARO-7 Assessment Tool: LAZARO-7 Assessment 91861 Review of Systems Const Details: Const Denies chills, Denies fatigue, Denies fever(s), Denies headache(s) and Denies weakness ENT Denies dizziness and Denies headache(s) Card Denies chest pain, Denies lightheadedness, Denies dyspnea and Denies other (Palp itations) Resp Denies cough, Denies dyspnea, Denies wheezing and Denies other ( shortness of breath) GI Denies abdominal pain, Denies melena, Denies hematochezia, Denies change in bowel habits, Denies dyspepsia and Denies nausea Denies hematuria and Denies dysuria Musc Denies abnormal gait, Denies myalgias, Denies arthralgias, Denies numbness and Denies tingling Skin/Breast Denies rash, Denies unusual bruising and Denies wounds Neuro Denies abnormal gait, Denies dizziness, Denies headache(s), Denies memory loss, Denies numbness, Denies Sensory deficit (Neuro), Denies tingling and Denies weakness Psych Denies anxiety, Denies depression, Denies memory loss Endo Denies cold intolerance, Denies fatigue, Denies heat intolerance, Denies polydipsia and Denies polyuria Aller/Immun Denies wheezing Physical exam (Primary Care) Vital Signs: Last Vital Signs Temp 97.5 F 07/27/25 08:19 Pulse 60 07/27/25 08:19 Resp 16 07/27/25 08:19 BP 155/67 H 07/27/25 08:19 Pulse Ox 96 07/27/25 08:19 Oxygen Delivery Method Room Air 07/27/25 08:19 BMI result Body Mass Index 31.2 Tobacco/Smoking Status: Tobacco use Status Tobacco use date assessed 07/27/25 07/27/25 08:23 Patient Tobacco Use Status Former Tobacco user 07/27/25 08:18 Tobacco use type Cigarette 07/27/25 08:18 e-Cigarette/Vaping Use Never Used 07/27/25 08:18 PHQ-9: PHQ-9 Score PHQ-9: Total score 0 07/27/25 08:23 Depression Screening Interpretation: Negative Thrive Assessment: Date of Thrive Assessment Date Thrive assessed 11/06/24 07/27/25 08:18 Currently or been in a relationship where the following occur: No concerns reported Const Other: General: no acute distress and well developed Nutritional Appearance: well nourished Orientation/consciousness: patient oriented x3 HENMT Head: Yes normocephalic and Yes atraumatic Eyes General: appearance normal, both eyes and all related structures Pupils: Equal, round and reactive pupils present EOM: EOMs intact bilaterally Resp Effort & Inspection: normal respiratory effort Auscultation: clear to auscultation bilaterally Cardio Rate: regular rate Rhythm: regular rhythm Heart sounds: S1 normal heart sound present, S2 normal heart sound present, no gallops, no murmurs and no rubs GI Palpation (GI): No Abdominal aortic bruit present, Soft to palpation, nontender, No hepatosplenomegaly present and No Rebound tenderness present Auscultation: normal bowel sounds General: Yes no CVA tenderness Back/Spine/Pelvis Back: no CVA tenderness Cervical Spine: cervical ROM normal and No Cervical spine tenderness Thoracic/Lumbar Spine: thoraco-lumbar ROM normal, No pain with thoraco-lumbar ROM, No thoracic spinal tenderness and No lumbar spinal tenderness Extrem General: Yes normal to inspection, No edema and No calf tenderness Skin General: warm and dry. Normal skin color. Normal skin turgor Neuro General: patient oriented x3, gait normal and no focal neuro deficit Cranial nerves: Yes Equal, round and reactive pupils present Cognition (Neuro): normal cognition Gait exam (Neuro): Normal gait present Sensory Exam: No Sensory deficit (Neuro) Psych Appearance: grossly normal Affect: normal affect Attitude: cooperative Thought process: Normal thought process present Coding Level of Care Code Est Pt Level 4 (54391) Diagnoses High blood pressure I10 Anxiety F41.9 Additional Codes LAZARO-7 Assessment Billing - LAZARO-7 Assessment Tool: LAZARO-7 Assessment 74250 ([id number]) PHQ-9 - 15072 - PHQ-9 Billing: Yes ([id number]) Assessment & Plan Assessment & Plan (1) High blood pressure: Code(s): I10 - Essential (primary) hypertension Category: Medical Plan: Resting blood pressure is 144/70, slightly above goal of less than 140/90. He has not taking hydralazine since prescribed at his last visit due to controlled home blood pressure readings. His home AM BP readings, before taking his medications, are between 130-142/59-67 and PM BP readings before taking his medications are between 115/129/45-73. Hold hydroxyzine for now. Continue current treatment regimen. Low-sodium diet encouraged. Continue to monitor home blood pressure readings and reports readings significantly above 140/90 with or without symptoms. Follow-up in 2 months or sooner with symptoms or concerns. Verbalized understanding and agreed with the plan. (2) Anxiety: Code(s): F41.9 - Anxiety disorder, unspecified Category: Medical Plan: Controlled. Orders: Orders Influenza [id number] Immunization Today Z23 - Encounter for immunization Medications: New Fluarix [id number] (PF) (flu vac ts (6mos up)-PF) 0.5 mL IM ONCE 0.5 mL 0RF NS Z23 - Encounter for immunization On Hold hydralazine Hold Comment: Doctor's Order 10 mg PO BID 60 tabs 3RF 30 days
[2025-07-27 08:19] VITALS: BP 155/67; PULSE 60; RESP 16; TEMP 36.4; O2SAT 96; BMI 31.2
[2025-07-27 08:48] VITALS: BP 144/70
== END 2025-07-27 09:08 | disposition home or self-care (01) ==
LOC: HO.HMCFM 08:03
PROVIDERS: PCP Nurse Practitioner Family; Visit Provider Nurse Practitioner Family
DX: I10 Essential (primary) hypertension (principal); F41.9 Anxiety disorder, unspecified; Z23 Encounter for immunization

== ENCOUNTER → 2025-07-27 08:02 | Outpatient (BNVA) | payer BC, SELFPAY | PROVIDERS: PCP Nurse Practitioner Family; Visit Provider Nurse Practitioner Family | DX: I10 Essential (primary) hypertension (principal); F41.9 Anxiety disorder, unspecified; Z23 Encounter for immunization | CPT/HCPCS: 90471; 90656; 96127 ==